=== PATIENT | female | born 1965 | race Caucasian/White ===

== ENCOUNTER 2018-09-25 09:36 | Outpatient (CLI) | payer OTHER ==
--- NOTE | 2018-09-25 13:38 | NM ---
FNM Bone Scan STANDARD History: [Malignant neoplasm of unspecified ovary] Comparison: None. Findings: Whole body static imaging was obtained after the intravenous demonstration of 30.6 C and te chnetium 99 M MDP. There is adequate uptake of radiotracer in the skeletal system. The kidneys and urinary bladder are v isualized. No evidence of metastatic disease. Impression: No evidence of metastatic disease.
== END 2018-09-25 09:37 | disposition home or self-care (01) ==
LOC: NM 09:36
PROVIDERS: ATTEND Internal Medicine Hematology & Oncology
DX: C56.9 Malignant neoplasm of unspecified ovary (principal); I08.1 Rheumatic disorders of both mitral and tricuspid valves; I31.3 Pericardial effusion (noninflammatory); Z79.899 Other long term (current) drug therapy
CPT/HCPCS: 78306; 93306; A9503

== ENCOUNTER 2018-09-26 07:33 | Day surgery (SDC) | payer OTHER ==
[2018-09-25 13:58] VITALS: BMI 24.9
[2018-09-26] MEDS ORDERED: Bupivacaine/Epinephrine 0.25% 30 ML VIAL ONE (08:07)
[2018-09-26] MEDS ORDERED: Lidocaine 2% PF 5 ML VIAL ONE (08:07)
[2018-09-26] MEDS ORDERED: Midazolam HCl 2 mg/2 ml Vial ONE (08:41)
[2018-09-26] MEDS ORDERED: Fentanyl 100 MCG/2 ML VIAL ONE (08:41)
--- NOTE | 2018-09-26 10:52 | RAD ---
FChest AP view INDICATION: Mediport placement COMPARISON: None FINDINGS: The lungs are clear. There is a small left apical pneumothorax. The right lung is clear. No acute osseous abnormality is evident. There is a left subclavian chest wall port in place. The tip of the catheter seen within the region of the SVC. IMPRESSION: Small left apical pneumothorax. Findings called to Dr. Stanley at 10:52 AM on September 26, 2018. New left subclavian chest wall port placement. Transcribed Date/Time: 09/26/2018 10:57 AM
--- NOTE | 2018-09-26 11:37 | RAD ---
FEXAM:Inspiratory expiratory chest 2 views HISTORY: Left-sided pneumothorax. COMPARISON: Exam done earlier today. FINDINGS:A tiny left apical pneumothorax is again noted it does not change substantially between insp iratory and expiratory chest films. It is not increased in size as compared to the earlier study. IMPRESSION:Stable tiny left apical pneumothorax
[2018-09-26] MEDS ORDERED: Ondansetron PF 4 MG/2 ML Vial ONE (12:04)
[2018-09-26] MEDS ORDERED: Lidocaine 1% PF 5 ML VIAL ONE (12:04)
[2018-09-26] MEDS ORDERED: PROPOFOL 200 MG/20 ML VIAL ONE (12:04)
[2018-09-26] MEDS ORDERED: HYDROcodone/Acetaminophen 5/325 mg Tablet ONE (12:24)
--- NOTE | 2018-09-26 15:31 | PDOC.OP ---
Operative Note - Operative Note Operative Note: PROCEDURE: Left subclavian MediPort placement DATE OF PROCEDURE: 09/26/2018 SURGEON: Fred Stanley M.D. PREOPERATIVE DIAGNOSIS: Ovarian cancer POSTOPERATIVE DIAGNOSIS: Ovarian cancer HISTORY: Patient has been diagnosed with ovarian cancer with ascites and omental involvement. Chemotherapy has been recommended and a Mediport has been requested for this. OPERATIVE PROCEDURE IN DETAIL: After informed consent was obtained and appropriate preoperative antibiotics administered, the patient was taken to the operating room and placed in supine position and monitored anesthesia care was administered. The patient was then placed in Trendelenburg position and the subclavian vein attempted to be accessed using a standard approach without success. A second attempt was made slightly more medially, again without success. A third attempt slightly more laterally obtained excellent dark venous nonpulsatile flow. A wire threaded easily and was confirmed to be in the superior vena cava by fluoroscopy. Additional local anesthesia was infused to the skin and subcutaneous tissues lateral and inferior to the access site. The skin incision was extended from the wire laterally and a subcutaneous pocket developed inferiorly. A Mediport was obtained and confirmed to fit in the subcutaneous pocket. This was secured inferiorly to the pectoralis fascia with a Prolene suture, which was clamped, but not tied. The dilator and sheath were then placed over the wire and the dilator and wire removed leaving the sheath in place. The clamped MediPort tubing was tunneled through the sheath, which was then split and removed leaving the MediPort tubing in place. The tubing was adjusted until the tip was confirmed by fluoroscopy to be in the superior vena cava just above the atrium. The tubing was clamped at the skin level and cut and the tubing secured to the port, which was then placed in the subcutaneous pocket. The previously placed suture was secured and two additional sutures were placed to fix the port in place within the pocket. The port was aspirated with the Alexander needle and had excellent flow of dark venous non-pulsatile blood and easily flushed without resistance. The subcutaneous tissues were closed with a running Monocryl suture, following which the skin was closed with a running subcuticular Monocryl suture. Dermabond dressings were placed and the hub was again accessed through the skin and confirmed to easily aspirate and easily flush. The access tubing was left in place for immediate postoperative chemotherapy, and dressed with gauze and Tegaderm. The course of the catheter was confirmed by fluoroscopy to be smooth with the tip appropriately located in the superior vena cava. The patient was taken back to the day stay unit in good condition. Estimated blood loss was minimal. There were no specimens. Postoperative chest x-ray showed a small left apical pneumothorax which did not expand on repeat chest x-ray. The patient was informed of this complication and instructed to return immediately if she developed chest pain or shortness of breath. A 6 hour follow-up chest x-ray was ordered to confirm stability.
--- NOTE | 2018-09-26 17:08 | RAD ---
FInspiratory and expiratory frontal radiograph chest: 09/26/2018 at 4:54 PM COMPARISON: 09/26/2018 at 11:25 AM HISTORY: Reevaluate pneumothorax FINDINGS: Stable tiny apical pneumothorax is noted on the left. New subtle subcutaneous gas noted in the supraclavicular region on the left and in the left axillary region. Mild increased linear interst itial density is noted with pulmonary hyperinflation. Small bilateral pleural effusions are noted as well. Left-sided Port-A-Cath present with distal tip overlying the expected location of the proximal superior vena cava, stable. IMPRESSION: Stable tiny apical pneumothorax on the left. Results called to Dr. Stanley at 5:05 PM 09/26/2018
== END 2018-09-26 13:30 | disposition home or self-care (01) ==
LOC: SDC 07:33
PROVIDERS: ATTEND Surgery
PROC: B518ZZA Fluoroscopy of Superior Vena Cava, Guidance (ICD-10-PCS; principal; 2018-09-26)
PROC: 02HV33Z Insertion of Infusion Device into Superior Vena Cava, Percutaneous Approach (ICD-10-PCS; principal; 2018-09-26)
DX: C56.9 Malignant neoplasm of unspecified ovary (principal); Z88.5 Allergy status to narcotic agent; Z88.2 Allergy status to sulfonamides; Z79.899 Other long term (current) drug therapy; Z98.890 Other specified postprocedural states
CPT/HCPCS: 71045; C1788; J1642; J2001; J2250; J2405; J2704; J3010

== ENCOUNTER 2018-11-26 08:35 | Outpatient (CLI) | payer OTHER ==
--- NOTE | 2018-11-26 13:13 | CT ---
CHEST, ABDOMEN AND PELVIC CT SCAN WITH IV CONTRAST: 11/26/18 HISTORY: Malignant neoplasm of unspecified ovary. Comparison is made to a prior report from an outside examination dated 09/09/18. FINDINGS: Left sided central line and injection port. Small to moderate right pleural effusion. No evidence for left pleural effusion. No mediastinal mass or adenopathy. Small pericardial effusion. Several small pericardial fat lymph nodes measuring up to 0.7 cm in size. Several small low attenuation foci within the liver, statistically small cysts. Gallbladder, pancreas, spleen, adrenal glands are unremarkable . No renal calculus or acute obstruction. Small retroperitoneal lymph nodes but no evidence for re troperitoneal adenopathy. Trace ascites in the pelvis. 1.7 cm right ovarian follicle cyst. Normal ap pearing appendix. IMPRESSION: Small to moderate right pleural effusion with minimal pleural based atelectasis. No left pleural effu bhumika. Trace pericardial effusion. Several small pericardial lymph nodes up to 0.7 cm in size. Small c ircumscribed low attenuation foci within the liver, statistically cysts. Small retroperitoneal lymph nodes without evidence for significant adenopathy. Trace ascetic fluid within the pelvis. 1.7 cm righ t ovarian follicle cyst. POS: OFF
== END 2018-11-26 08:36 | disposition home or self-care (01) ==
LOC: SCSCT 08:35
PROVIDERS: ATTEND Internal Medicine Hematology & Oncology
DX: C56.9 Malignant neoplasm of unspecified ovary (principal); J90 Pleural effusion, not elsewhere classified; J98.11 Atelectasis; N83.01 Follicular cyst of right ovary
CPT/HCPCS: 71260; 74177; 80053; 82248; 83615; 84100; 84550; 86304

== ENCOUNTER 2019-02-21 08:14 | Outpatient (CLI) | payer OTHER ==
[2019-02-21] MEDS ORDERED: Iopamidol 370 76% 100 ML VIAL ONE (09:00)
--- NOTE | 2019-02-21 12:48 | CT ---
Chest abdomen and pelvic CT scan with IV contrast: HISTORY: C 56.9 COMPARISON: 11/26/2018 FINDINGS: Resolution of the previously noted small right pleural effusion and pleural-based parenchymal changes in the right lower lung base. The previously noted small right pericardial lymph nodes are smaller and less well-defined on today's study. Trace pericardial fluid or thickening, stable. No evidence fo r pulmonary metastasis. Small circumscribed low-attenuation foci within the liver dome stable. No CT evidence for acute appendicitis. Mild stable fat stranding in the pelvis. No pelvic adenopathy. No abscess or abnormal fluid collection. IMPRESSION: Resolution of the previously noted small right pleural effusion and pleural-based parenchymal changes . Previously noted small right pericardial lymph nodes are much more poorly defined and probably smalle r. Stable circumscribed low-attenuation foci in the liver. Stable fat stranding in the pelvis. No evidence for new metastasis.
== END 2019-02-21 08:15 | disposition home or self-care (01) ==
LOC: SCSCT 08:14
PROVIDERS: ATTEND Internal Medicine Hematology & Oncology
DX: C56.9 Malignant neoplasm of unspecified ovary (principal); J90 Pleural effusion, not elsewhere classified
CPT/HCPCS: 71260; 74177; Q9967

== ENCOUNTER 2020-05-27 15:30 | Outpatient (CLI) | payer BC ==
--- NOTE | 2020-05-28 11:03 | MRI ---
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 Ovarian cancer. COMPARISON: Mammogram 11/20/2019. CT chest/abdomen/pelvis 02/21/2019 and 11/26/2018. TECHNIQUE: Multiplanar, multisequence MR images were obtained of the breasts without and with IV contrast. FINDINGS: There is predominantly fatty replaced breast parenchyma. Minimal background parenchymal enhancement i s seen. No suspicious masses or suspicious area of enhancement are seen within either breast. Normal appearin g lymph nodes are seen in the axillary regions. No enlarged axillary lymph nodes are seen. No interna l mammary lymph nodes are identified. The visualized anterior liver and osseous structures are unremarkable. IMPRESSION: BI-RADS Category 1 - Negative. POS: EAA
== END 2020-05-27 15:31 | disposition home or self-care (01) ==
LOC: BICMRI 15:30
PROVIDERS: ATTEND Internal Medicine Hematology & Oncology
DX: C56.9 Malignant neoplasm of unspecified ovary (principal)
CPT/HCPCS: A9577; C8908

== ENCOUNTER 2020-11-06 10:42 | Day surgery (SDC) | payer BC ==
[2020-11-06] MEDS ORDERED: Acetaminophen 500 MG TAB PO PRN (11:05)
[2020-11-06] MEDS ORDERED: diphenhydrAMINE 25 MG CAP PO PRN (11:05)
[2020-11-06 14:41] VITALS: BP 117/58; TEMP 97.7
[2020-11-06] MEDS ORDERED: Insulin Regular 300 UNITS/3 ML VIAL ONE (15:05)
[2020-11-06 16:01] LABS: #Lymphocytes 1.7 thou/uL (1.20-3.40); #Monocytes 0.4 thou/uL (0.11-0.59); #Neutrophils 3.6 thou/uL (1.40-6.50); %Basophils 0.4 % (0.0-1.0); %Eosinophils 0.1 % (0.0-10.0); %Lymphocytes 30.4 % (21.0-51.0); %Monocytes 6.5 % (0.0-10.0); %Neutrophils 62.6 % (42.0-75.0); Mean Corpuscular HGB CONC 33.9 g/dL (32.0-36.0); Mean Corpuscular Hemoglobin 35.3 pg (27.0-31.0); Mean Platelet Volume 9.4 fL (7.4-10.4); Platelet Count 97 thou/uL (130-400); RBC Distribution Width 17.8 % (11.5-14.5); Red Blood Cell (RBC) Count 2.55 mill/uL (4.20-5.40); White Blood Cell (WBC) Count 5.7 thou/uL (4.8-10.8)
== END 2020-11-06 15:50 | disposition home or self-care (01) ==
LOC: ONC/OP 10:42 → ONC 10:52 → ONC/OP 15:50
PROVIDERS: ATTEND Internal Medicine Hematology & Oncology
PROC: 30233N1 Transfusion of Nonautologous Red Blood Cells into Peripheral Vein, Percutaneous Approach (ICD-10-PCS; principal; 2020-11-06)
DX: D64.9 Anemia, unspecified (principal); D69.6 Thrombocytopenia, unspecified; Z88.2 Allergy status to sulfonamides; Z88.5 Allergy status to narcotic agent
CPT/HCPCS: 36430; 85025; 86850; 86900; 86901; J1642; J1815; P9016; Q0163

== ENCOUNTER 2020-11-25 08:17 | Day surgery (SDC) | payer BC ==
[2020-11-25] MEDS ORDERED: Acetaminophen 500 MG TAB PO PRN (08:27)
[2020-11-25] MEDS ORDERED: diphenhydrAMINE 25 MG CAP PO PRN (08:29)
[2020-11-25] MEDS ORDERED: Sodium Chloride 0.9% 20 ML ONE (09:26)
[2020-11-25 16:06] VITALS: BP 127/65; TEMP 98.3
== END 2020-11-25 16:10 | disposition home or self-care (01) ==
LOC: ONC/OP 08:17
PROVIDERS: ATTEND Internal Medicine Hematology & Oncology
PROC: 30233N1 Transfusion of Nonautologous Red Blood Cells into Peripheral Vein, Percutaneous Approach (ICD-10-PCS; principal; 2020-11-25)
PROC: 30233R1 Transfusion of Nonautologous Platelets into Peripheral Vein, Percutaneous Approach (ICD-10-PCS; principal; 2020-11-25)
DX: D64.9 Anemia, unspecified (principal); D69.6 Thrombocytopenia, unspecified; Z88.2 Allergy status to sulfonamides; Z88.5 Allergy status to narcotic agent
CPT/HCPCS: 36430; 86850; 86900; 86901; J1642; P9016; P9035; Q0163

== ENCOUNTER 2020-12-24 10:53 | Day surgery (SDC) | payer BC ==
[2020-12-24] MEDS ORDERED: diphenhydrAMINE 25 MG CAP PO SCH (11:15)
[2020-12-24] MEDS ORDERED: Acetaminophen 500 MG TAB PO SCH (11:15)
[2020-12-24] MEDS ORDERED: Sodium Chloride 0.9% 20 ML ONE (12:32)
[2020-12-24 14:39] VITALS: TEMP 97.9
[2020-12-24 16:12] VITALS: BP 126/58
== END 2020-12-24 16:12 | disposition home or self-care (01) ==
LOC: ONC/OP 10:53
PROVIDERS: ATTEND Internal Medicine Hematology & Oncology
PROC: 30233N1 Transfusion of Nonautologous Red Blood Cells into Peripheral Vein, Percutaneous Approach (ICD-10-PCS; principal; 2020-12-24)
DX: D64.9 Anemia, unspecified (principal); D69.6 Thrombocytopenia, unspecified; Z88.2 Allergy status to sulfonamides; Z88.5 Allergy status to narcotic agent
CPT/HCPCS: 36430; 80053; 82248; 83615; 84100; 84550; 86304; 86850; 86900; 86901; J1642; P9016; Q0163

== ENCOUNTER 2021-07-07 11:44 | Day surgery (SDC) | payer BC ==
[2021-07-07] MEDS ORDERED: diphenhydrAMINE 25 MG CAP ONE ×2 (12:09→12:11)
[2021-07-07] MEDS ORDERED: Acetaminophen 500 MG TAB ONE ×2 (12:09→12:11)
[2021-07-07] MEDS ORDERED: Acetaminophen 500 MG TAB PO SCH (12:30)
[2021-07-07] MEDS ORDERED: diphenhydrAMINE 25 MG CAP PO SCH (12:30)
[2021-07-07 15:46] VITALS: TEMP 98.1
[2021-07-07 15:50] VITALS: BP 123/58
== END 2021-07-07 15:51 | disposition home or self-care (01) ==
LOC: ONC/OP 11:44
PROVIDERS: ATTEND Internal Medicine Hematology & Oncology
PROC: 30233N1 Transfusion of Nonautologous Red Blood Cells into Peripheral Vein, Percutaneous Approach (ICD-10-PCS; principal; 2021-07-07)
PROC: 30233R1 Transfusion of Nonautologous Platelets into Peripheral Vein, Percutaneous Approach (ICD-10-PCS; principal; 2021-07-07)
DX: D64.9 Anemia, unspecified (principal); D69.6 Thrombocytopenia, unspecified; Z88.2 Allergy status to sulfonamides; Z88.5 Allergy status to narcotic agent
CPT/HCPCS: 36430; 86850; 86900; 86901; P9016; P9035

== ENCOUNTER 2021-07-22 12:35 | Day surgery (SDC) | payer BC ==
[2021-07-22] MEDS ORDERED: diphenhydrAMINE 25 MG CAP ONE (13:03)
[2021-07-22] MEDS ORDERED: Acetaminophen 500 MG TAB ONE (13:03)
[2021-07-22 14:22] VITALS: TEMP 98.4
[2021-07-22 16:21] VITALS: BP 122/65
== END 2021-07-22 16:21 | disposition home or self-care (01) ==
LOC: ONC/OP 12:35
PROVIDERS: ATTEND Internal Medicine Hematology & Oncology
PROC: 30233N1 Transfusion of Nonautologous Red Blood Cells into Peripheral Vein, Percutaneous Approach (ICD-10-PCS; principal; 2021-07-22)
PROC: 30233R1 Transfusion of Nonautologous Platelets into Peripheral Vein, Percutaneous Approach (ICD-10-PCS; principal; 2021-07-22)
DX: D64.9 Anemia, unspecified (principal); D69.6 Thrombocytopenia, unspecified; Z88.2 Allergy status to sulfonamides; Z88.5 Allergy status to narcotic agent
CPT/HCPCS: 36430; 86850; 86900; 86901; J1642; P9016; P9035

== ENCOUNTER 2021-09-15 08:01 | Day surgery (SDC) | payer BC ==
[2021-09-15] MEDS ORDERED: Acetaminophen 500 MG TAB ONE (09:07)
[2021-09-15] MEDS ORDERED: diphenhydrAMINE 25 MG CAP ONE (09:07)
[2021-09-15 14:25] VITALS: BP 127/75; TEMP 98.2
== END 2021-09-15 14:25 | disposition home or self-care (01) ==
LOC: ONC/OP 08:01
PROVIDERS: ATTEND Internal Medicine Hematology & Oncology
PROC: 3E0T3BZ Introduction of Anesthetic Agent into Peripheral Nerves and Plexi, Percutaneous Approach (ICD-10-PCS; principal; 2021-09-15)
PROC: 30233R1 Transfusion of Nonautologous Platelets into Peripheral Vein, Percutaneous Approach (ICD-10-PCS; principal; 2021-09-15)
DX: D64.9 Anemia, unspecified (principal); D69.6 Thrombocytopenia, unspecified; Z88.2 Allergy status to sulfonamides; Z88.5 Allergy status to narcotic agent
CPT/HCPCS: 36430; 86850; 86900; 86901; P9016; P9035

== ENCOUNTER 2021-09-23 15:34 | Day surgery (SDC) | payer BC ==
[2021-09-23 16:37] VITALS: BP 126/80; TEMP 98.2
== END 2021-09-23 16:37 | disposition home or self-care (01) ==
LOC: ONC/OP 15:34
PROVIDERS: ATTEND Internal Medicine Hematology & Oncology
PROC: 30233R1 Transfusion of Nonautologous Platelets into Peripheral Vein, Percutaneous Approach (ICD-10-PCS; principal; 2021-09-23)
DX: D69.6 Thrombocytopenia, unspecified (principal); D64.9 Anemia, unspecified; Z88.2 Allergy status to sulfonamides; Z88.5 Allergy status to narcotic agent
CPT/HCPCS: 36430; 86304; 86850; 86900; 86901; J1642; P9035

== ENCOUNTER 2021-10-06 15:31 | Day surgery (SDC) | payer BC ==
[2021-10-06] MEDS ORDERED: diphenhydrAMINE 25 MG CAP PO SCH (16:45)
[2021-10-06] MEDS ORDERED: Acetaminophen 500 MG TAB PO SCH (16:45)
[2021-10-06 18:16] VITALS: BP 121/58; TEMP 98.2
[2021-10-06 21:11] LABS: #Lymphocytes 0.7 thou/uL (1.20-3.40); #Neutrophils 1.1 thou/uL (1.40-6.50); %Basophils 0.7 % (0.0-1.0); %Eosinophils 0.1 % (0.0-10.0); %Lymphocytes 38.3 % (21.0-51.0); %Monocytes 1.9 % (0.0-10.0); Hemoglobin 8.3 g/dL (12.0-16.0); Mean Corpuscular Hemoglobin 35.4 pg (27.0-31.0); Mean Platelet Volume 7.3 fL (7.4-10.4); Platelet Count 48 thou/uL (130-400); RBC Distribution Width 17.3 % (11.5-14.5); Red Blood Cell (RBC) Count 2.34 mill/uL (4.20-5.40); White Blood Cell (WBC) Count 1.8 thou/uL (4.8-10.8)
== END 2021-10-06 21:45 | disposition home or self-care (01) ==
LOC: ONC/OP 15:31 → 2NO 15:46 → UNDOADMIN 15:46 → MSONC 15:46 → UNDODISIN 21:15 → ONC/OP 21:45
PROVIDERS: ATTEND Internal Medicine Hematology & Oncology
PROC: 30233N1 Transfusion of Nonautologous Red Blood Cells into Peripheral Vein, Percutaneous Approach (ICD-10-PCS; principal; 2021-10-06)
PROC: 30233R1 Transfusion of Nonautologous Platelets into Peripheral Vein, Percutaneous Approach (ICD-10-PCS; principal; 2021-10-06)
DX: D64.9 Anemia, unspecified (principal); D69.6 Thrombocytopenia, unspecified; Z88.2 Allergy status to sulfonamides; Z88.5 Allergy status to narcotic agent
CPT/HCPCS: 36415; 36430; 85025; 86304; 86850; 86900; 86901; P9016; P9035

== ENCOUNTER → 2021-10-14 | Day surgery (SDC) | payer BC ==
[~2021-10-14] MED LIST: Acetaminophen 500 MG TAB ONE; diphenhydrAMINE 25 MG CAP ONE
[2021-10-14 15:12] VITALS: TEMP 98.4
[2021-10-14 15:20] VITALS: BP 134/63
== END ==
LOC: ONC/OP 10:47
PROVIDERS: ATTEND Internal Medicine Hematology & Oncology
PROC: 30233N1 Transfusion of Nonautologous Red Blood Cells into Peripheral Vein, Percutaneous Approach (ICD-10-PCS; principal; 2021-10-14)
PROC: 30233R1 Transfusion of Nonautologous Platelets into Peripheral Vein, Percutaneous Approach (ICD-10-PCS; principal; 2021-10-14)
DX: D69.6 Thrombocytopenia, unspecified (principal); D64.9 Anemia, unspecified; Z88.2 Allergy status to sulfonamides; Z88.5 Allergy status to narcotic agent
CPT/HCPCS: 36430; 86850; 86900; 86901; J1642; P9016; P9035

== ENCOUNTER 2021-10-18 17:33 | Day surgery (SDC) | payer BC ==
[2021-10-18] MEDS ORDERED: Acetaminophen 500 MG TAB PO PRN (19:18)
[2021-10-18] MEDS ORDERED: diphenhydrAMINE 25 MG CAP PO PRN (19:18)
[2021-10-18 22:34] VITALS: BP 112/74; TEMP 98.7
== END 2021-10-18 22:39 | disposition home or self-care (01) ==
LOC: ONC/OP 17:33 → MSONC 18:21 → ONC/OP 22:39
PROVIDERS: ATTEND Internal Medicine Hematology & Oncology
PROC: 30233R1 Transfusion of Nonautologous Platelets into Peripheral Vein, Percutaneous Approach (ICD-10-PCS; principal; 2021-10-18)
DX: D69.6 Thrombocytopenia, unspecified (principal); Z88.2 Allergy status to sulfonamides; Z88.5 Allergy status to narcotic agent
CPT/HCPCS: 36430; 86850; 86900; 86901; J1642; P9035

== ENCOUNTER 2021-10-21 12:06 | Day surgery (SDC) | payer BC ==
[2021-10-21] MEDS ORDERED: diphenhydrAMINE 25 MG CAP ONE (13:14)
[2021-10-21] MEDS ORDERED: Acetaminophen 500 MG TAB ONE (13:14)
[2021-10-21 15:46] VITALS: BP 130/65; TEMP 98.5
== END 2021-10-21 15:47 | disposition home or self-care (01) ==
LOC: ONC/OP 12:06
PROVIDERS: ATTEND Internal Medicine Hematology & Oncology
PROC: 30233N1 Transfusion of Nonautologous Red Blood Cells into Peripheral Vein, Percutaneous Approach (ICD-10-PCS; principal; 2021-10-21)
DX: D64.9 Anemia, unspecified (principal); D69.6 Thrombocytopenia, unspecified; Z88.2 Allergy status to sulfonamides; Z88.5 Allergy status to narcotic agent
CPT/HCPCS: 36430; 86850; 86900; 86901; J1642; P9016

== ENCOUNTER 2021-11-04 10:59 | Day surgery (SDC) | payer BC ==
[2021-11-04] MEDS ORDERED: Acetaminophen 500 MG TAB ONE (11:37)
[2021-11-04] MEDS ORDERED: diphenhydrAMINE 25 MG CAP ONE (11:37)
[2021-11-04 14:30] VITALS: BP 125/63; TEMP 98.5
== END 2021-11-04 14:29 | disposition home or self-care (01) ==
LOC: ONC/OP 10:59
PROVIDERS: ATTEND Internal Medicine Hematology & Oncology
PROC: 30233R1 Transfusion of Nonautologous Platelets into Peripheral Vein, Percutaneous Approach (ICD-10-PCS; principal; 2021-11-04)
PROC: 30233N1 Transfusion of Nonautologous Red Blood Cells into Peripheral Vein, Percutaneous Approach (ICD-10-PCS; principal; 2021-11-04)
DX: D69.6 Thrombocytopenia, unspecified (principal); D64.9 Anemia, unspecified; Z88.2 Allergy status to sulfonamides; Z88.5 Allergy status to narcotic agent
CPT/HCPCS: 36430; 86850; 86900; 86901; J1642; P9016; P9035

== ENCOUNTER 2021-11-11 11:18 | Day surgery (SDC) | payer BC ==
[2021-11-11] MEDS ORDERED: diphenhydrAMINE 25 MG CAP ONE (11:39)
[2021-11-11] MEDS ORDERED: Acetaminophen 500 MG TAB ONE (11:39)
[2021-11-11 12:52] VITALS: TEMP 98.5
[2021-11-11 12:54] VITALS: BP 142/62
== END 2021-11-11 12:55 | disposition home or self-care (01) ==
LOC: ONC/OP 11:18
PROVIDERS: ATTEND Internal Medicine Hematology & Oncology
PROC: 30233R1 Transfusion of Nonautologous Platelets into Peripheral Vein, Percutaneous Approach (ICD-10-PCS; principal; 2021-11-11)
DX: D69.6 Thrombocytopenia, unspecified (principal); Z88.2 Allergy status to sulfonamides; Z88.5 Allergy status to narcotic agent
CPT/HCPCS: 36430; 86850; 86900; 86901; J1642; P9035

== ENCOUNTER 2021-11-17 11:14 | Outpatient (CLI) | payer BC ==
[2021-11-17 21:33] LABS: SARS-CoV-2 PCR by NAA Not Detected (NotDetected)
== END 2021-11-17 11:15 | disposition home or self-care (01) ==
LOC: LABBT 11:14
DX: D69.59 Other secondary thrombocytopenia (principal); C56.9 Malignant neoplasm of unspecified ovary; Z20.822 Contact with and (suspected) exposure to COVID-19
CPT/HCPCS: U0003; U0005

== ENCOUNTER 2021-11-18 12:46 | Day surgery (SDC) | payer BC ==
[2021-11-18] MEDS ORDERED: Acetaminophen 500 MG TAB ONE (13:28)
[2021-11-18] MEDS ORDERED: diphenhydrAMINE 25 MG CAP ONE (13:29)
[2021-11-18 14:50] VITALS: TEMP 98.4
[2021-11-18 16:32] VITALS: BP 157/65
== END 2021-11-18 16:34 | disposition home or self-care (01) ==
LOC: ONC/OP 12:46
PROVIDERS: ATTEND Internal Medicine Hematology & Oncology
PROC: 30233N1 Transfusion of Nonautologous Red Blood Cells into Peripheral Vein, Percutaneous Approach (ICD-10-PCS; principal; 2021-11-18)
PROC: 30233R1 Transfusion of Nonautologous Platelets into Peripheral Vein, Percutaneous Approach (ICD-10-PCS; principal; 2021-11-18)
DX: D69.6 Thrombocytopenia, unspecified (principal); D64.9 Anemia, unspecified; Z88.2 Allergy status to sulfonamides; Z88.5 Allergy status to narcotic agent
CPT/HCPCS: 36430; 86850; 86900; 86901; J1642; P9016; P9035

== ENCOUNTER 2021-11-22 08:15 | Day surgery (SDC) | payer BC ==
[2021-11-18 10:55] VITALS: BMI 29.8
[2021-11-22 08:42] LABS: Hemoglobin 10.4 g/dL (12.0-16.0); Mean Corpuscular HGB CONC 33.5 g/dL (32.0-36.0); Mean Corpuscular Hemoglobin 32.8 pg (27.0-31.0); Mean Corpuscular Volume 97.9 fL (78.0-98.0); Mean Platelet Volume 9.1 fL (7.4-10.4); Platelet Count 24 thou/uL (130-400); Red Blood Cell (RBC) Count 3.16 mill/uL (4.20-5.40); White Blood Cell (WBC) Count 4.1 thou/uL (4.8-10.8)
[2021-11-22 08:51] LABS: PTT 30.2 sec (22.9-36.1); Prothrombin Time 13.5 sec (12.0-14.7)
[2021-11-22 09:37] LABS: MDiff Complete? YES; Platelet Morphology Comment Appears Decreased; Polychromasia SLIGHT = 2-3 cells (100X) (0-2/hpf)
[2021-11-22 12:06] VITALS: BP 119/74; TEMP 98.7
== END 2021-11-22 11:35 | disposition home or self-care (01) ==
LOC: CT 08:15
PROVIDERS: ATTEND Internal Medicine Hematology & Oncology
PROC: 079T3ZX Drainage of Bone Marrow, Percutaneous Approach, Diagnostic (ICD-10-PCS; principal; 2021-11-22)
PROC: 07DR3ZX Extraction of Iliac Bone Marrow, Percutaneous Approach, Diagnostic (ICD-10-PCS; principal; 2021-11-22)
DX: D69.59 Other secondary thrombocytopenia (principal); C56.1 Malignant neoplasm of right ovary; Z79.899 Other long term (current) drug therapy; Z88.2 Allergy status to sulfonamides; Z88.5 Allergy status to narcotic agent
CPT/HCPCS: 20225; 36415; 77002; 85025; 85610; 85730; 88184; 88237

== ENCOUNTER 2021-11-24 10:21 | Day surgery (SDC) | payer BC ==
[~2021-11-24 10:21] MED LIST changes: -Acetaminophen 500 MG TAB ONE; +Fentanyl 100 MCG/2 ML VIAL ONE; +Midazolam HCl 2 mg/2 ml Vial ONE; +Sodium Bicarbonate 2.5 MEQ/5 ML VIAL ONE; -diphenhydrAMINE 25 MG CAP ONE
[2021-11-24] MEDS ORDERED: diphenhydrAMINE 25 MG CAP ONE (10:48)
[2021-11-24] MEDS ORDERED: Acetaminophen 500 MG TAB ONE (10:48)
[2021-11-24 12:16] VITALS: BP 125/56; TEMP 98.6
== END 2021-11-24 12:17 | disposition home or self-care (01) ==
LOC: ONC/OP 10:21
PROVIDERS: ATTEND Internal Medicine Hematology & Oncology
PROC: 30233R1 Transfusion of Nonautologous Platelets into Peripheral Vein, Percutaneous Approach (ICD-10-PCS; principal; 2021-11-24)
DX: D69.6 Thrombocytopenia, unspecified (principal); D64.9 Anemia, unspecified; Z88.2 Allergy status to sulfonamides; Z88.5 Allergy status to narcotic agent
CPT/HCPCS: 36430; 86850; 86900; 86901; J1642; P9035

== ENCOUNTER 2021-11-30 09:37 | Day surgery (SDC) | payer BC ==
[2021-11-30] MEDS ORDERED: diphenhydrAMINE 25 MG CAP ONE (09:49)
[2021-11-30] MEDS ORDERED: Acetaminophen 500 MG TAB ONE (09:50)
[2021-11-30 10:24] VITALS: TEMP 98.5
[2021-11-30 10:55] VITALS: BP 115/69
== END 2021-11-30 10:55 | disposition home or self-care (01) ==
LOC: ONC/OP 09:37
PROVIDERS: ATTEND Internal Medicine Hematology & Oncology
PROC: 30233R1 Transfusion of Nonautologous Platelets into Peripheral Vein, Percutaneous Approach (ICD-10-PCS; principal; 2021-11-30)
DX: D69.6 Thrombocytopenia, unspecified (principal); D64.9 Anemia, unspecified; Z88.2 Allergy status to sulfonamides; Z88.5 Allergy status to narcotic agent
CPT/HCPCS: 36430; 86850; 86900; 86901; J1642; P9035

== ENCOUNTER 2021-12-02 10:02 | Day surgery (SDC) | payer BC ==
[2021-12-02] MEDS ORDERED: Acetaminophen 500 MG TAB ONE (10:55)
[2021-12-02] MEDS ORDERED: diphenhydrAMINE 25 MG CAP ONE (10:55)
[2021-12-02 11:24] VITALS: TEMP 98.5
[2021-12-02 14:17] VITALS: BP 120/58
== END 2021-12-02 14:17 | disposition home or self-care (01) ==
LOC: ONC/OP 10:02
PROVIDERS: ATTEND Internal Medicine Hematology & Oncology
PROC: 30233N1 Transfusion of Nonautologous Red Blood Cells into Peripheral Vein, Percutaneous Approach (ICD-10-PCS; principal; 2021-12-02)
DX: D64.9 Anemia, unspecified (principal); D69.6 Thrombocytopenia, unspecified; Z88.2 Allergy status to sulfonamides; Z88.5 Allergy status to narcotic agent
CPT/HCPCS: 36430; 86850; 86900; 86901; J1642; P9016

== ENCOUNTER 2021-12-07 12:31 | Day surgery (SDC) | payer BC ==
[2021-12-07] MEDS ORDERED: diphenhydrAMINE 25 MG CAP ONE (12:48)
[2021-12-07] MEDS ORDERED: Acetaminophen 500 MG TAB ONE (12:48)
[2021-12-07 16:02] VITALS: BP 124/82; TEMP 98.1
== END 2021-12-07 16:12 | disposition home or self-care (01) ==
LOC: ONC/OP 12:31
PROVIDERS: ATTEND Internal Medicine Hematology & Oncology
PROC: 30233R1 Transfusion of Nonautologous Platelets into Peripheral Vein, Percutaneous Approach (ICD-10-PCS; principal; 2021-12-07)
PROC: 30233N1 Transfusion of Nonautologous Red Blood Cells into Peripheral Vein, Percutaneous Approach (ICD-10-PCS; principal; 2021-12-07)
DX: D64.9 Anemia, unspecified (principal); D69.6 Thrombocytopenia, unspecified; Z88.2 Allergy status to sulfonamides; Z88.5 Allergy status to narcotic agent
CPT/HCPCS: 36430; 86850; 86900; 86901; J1642; P9016; P9035

== ENCOUNTER 2021-12-08 11:57 | Outpatient (CLI) | payer BC | END 2021-12-08 11:58 | disposition home or self-care (01) | LOC: RAD 11:57 | PROVIDERS: ATTEND Internal Medicine Hematology & Oncology | DX: R06.02 Shortness of breath (principal); J90 Pleural effusion, not elsewhere classified | CPT/HCPCS: 71046 ==

== ENCOUNTER 2021-12-16 09:12 | Day surgery (SDC) | payer BC ==
[2021-12-16] MEDS ORDERED: Acetaminophen 500 MG TAB ONE (10:10)
[2021-12-16] MEDS ORDERED: diphenhydrAMINE 25 MG CAP ONE (10:10)
[2021-12-16 11:51] VITALS: BP 135/63; TEMP 98.1
== END 2021-12-16 11:51 | disposition home or self-care (01) ==
LOC: ONC/OP 09:12
PROVIDERS: ATTEND Internal Medicine Hematology & Oncology
PROC: 30233R1 Transfusion of Nonautologous Platelets into Peripheral Vein, Percutaneous Approach (ICD-10-PCS; principal; 2021-12-16)
DX: D69.6 Thrombocytopenia, unspecified (principal); D64.9 Anemia, unspecified; Z88.2 Allergy status to sulfonamides; Z88.5 Allergy status to narcotic agent
CPT/HCPCS: 36430; 86850; 86900; 86901; J1642; P9035

== ENCOUNTER 2021-12-22 10:42 | Outpatient (CLI) | payer BC | END 2021-12-22 10:43 | disposition home or self-care (01) | LOC: BICRAD 10:42 | PROVIDERS: ATTEND Internal Medicine Hematology & Oncology | DX: J90 Pleural effusion, not elsewhere classified (principal); C56.9 Malignant neoplasm of unspecified ovary; D69.59 Other secondary thrombocytopenia; D46.Z Other myelodysplastic syndromes | CPT/HCPCS: 71046 ==

== ENCOUNTER 2021-12-22 11:20 | Day surgery (SDC) | payer BC ==
[2021-12-22] MEDS ORDERED: diphenhydrAMINE 25 MG CAP ONE (12:28)
[2021-12-22] MEDS ORDERED: Acetaminophen 500 MG TAB ONE (12:28)
[2021-12-22 14:57] VITALS: TEMP 98.5
[2021-12-22 15:00] VITALS: BP 123/56
== END 2021-12-22 15:00 | disposition home or self-care (01) ==
LOC: ONC/OP 11:20
PROVIDERS: ATTEND Internal Medicine Hematology & Oncology
PROC: 30233N1 Transfusion of Nonautologous Red Blood Cells into Peripheral Vein, Percutaneous Approach (ICD-10-PCS; principal; 2021-12-22)
DX: D64.9 Anemia, unspecified (principal); D69.6 Thrombocytopenia, unspecified; Z88.2 Allergy status to sulfonamides; Z88.5 Allergy status to narcotic agent
CPT/HCPCS: 36430; 71046; 86850; 86900; 86901; J1642; P9016

== ENCOUNTER 2021-12-29 17:26 | Inpatient (IN) | payer BC ==
[~2021-12-29 17:26] MED LIST changes: -Fentanyl 100 MCG/2 ML VIAL ONE; +ISOVUE-370 76%-LOCM 1 ML ONE; -Midazolam HCl 2 mg/2 ml Vial ONE; -Sodium Bicarbonate 2.5 MEQ/5 ML VIAL ONE
[2021-12-29 18:33] LABS: #Basophils 0.1 thou/uL (0.0-0.2); #Lymphocytes 1.4 thou/uL (1.20-3.40); #Monocytes 0.3 thou/uL (0.11-0.59); #Neutrophils 2.8 thou/uL (1.40-6.50); %Basophils 2.1 % (0.0-1.0); %Eosinophils 0.1 % (0.0-10.0); %Lymphocytes 30.4 % (21.0-51.0); %Monocytes 6.8 % (0.0-10.0); %Neutrophils 60.6 % (42.0-75.0); Hemoglobin 7.7 g/dL (12.0-16.0); Mean Corpuscular HGB CONC 33.7 g/dL (32.0-36.0); Mean Corpuscular Hemoglobin 34.4 pg (27.0-31.0); Mean Platelet Volume 11.4 fL (7.4-10.4); Platelet Count 19 thou/uL (130-400); RBC Distribution Width 19.8 % (11.5-14.5); Red Blood Cell (RBC) Count 2.24 mill/uL (4.20-5.40); White Blood Cell (WBC) Count 4.6 thou/uL (4.8-10.8)
[2021-12-29 18:43] LABS: INR-International Normal Ratio 1.1; Prothrombin Time 14.4 sec (12.0-14.7)
[2021-12-29 18:44] LABS: PTT 40.3 sec (22.9-36.1)
[2021-12-29 18:53] LABS: D-Dimer Test 6.72 *mcg/mL (0.27-0.43)
[2021-12-29 19:25] LABS: ALT (SGPT) 24 U/L (8-55); AST (SGOT) 19 U/L (5-34); Albumin 3.8 g/dL (3.5-5.0); Alkaline Phosphatase 106 U/L (40-110); Anion Gap 17 mmol/L (10-20); BUN (Urea Nitrogen) 11 mg/dL (9.8-20.1); Bilirubin, Total 1.2 mg/dL (0.2-1.2); Calc. Creatinine Clearance 0 mL/min (70-130); Calcium 8.9 mg/dL (7.8-10.44); Carbon Dioxide 28 mmol/L (22-29); Chloride 97 mmol/L (98-107); Estimated GFR 104; Globulin 3.3 g/dL (2.4-3.5); Glucose 113 mg/dL (70-105); Lipase 13 U/L (8-78); Potassium 3.7 mmol/L (3.5-5.1); Protein, Total 7.1 g/dL (6.0-8.3); Sodium 138 mmol/L (136-145)
[2021-12-29] MEDS ORDERED: Acetaminophen 500 MG TAB ONE (22:03)
[2021-12-29 22:20] LABS: SARS-CoV-2 NAA Rapid Test Not Detected (NotDetected)
[2021-12-29 23:40] VITALS: BMI 28.3
[2021-12-30 01:05] LABS: Hemoglobin 8.7 g/dL (12.0-16.0)
[2021-12-30 03:05] LABS: Band 8 % (5-11); Hemoglobin 8.3 g/dL (12.0-16.0); Hypochromia SLIGHT = 6-15 cells (100X) (0-5/hpf); Lymphocytes 37 % (21-51); MDiff Complete? YES; Mean Corpuscular HGB CONC 34.6 g/dL (32.0-36.0); Mean Corpuscular Hemoglobin 34.2 pg (27.0-31.0); Mean Corpuscular Volume 98.9 fL (78.0-98.0); Mean Platelet Volume 7.6 fL (7.4-10.4); Monocytes 4 % (0-10); Neutrophil 46 % (42-75); Platelet Count 66 thou/uL (130-400); Platelet Morphology Comment Appears Decreased; RBC Distribution Width 17.9 % (11.5-14.5); Reactive Lymphocytes 5 % (0-10); Red Blood Cell (RBC) Count 2.41 mill/uL (4.20-5.40); White Blood Cell (WBC) Count 4.2 thou/uL (4.8-10.8)
[2021-12-30 03:19] LABS: ALT (SGPT) 22 U/L (8-55); AST (SGOT) 20 U/L (5-34); Albumin 3.4 g/dL (3.5-5.0); Alkaline Phosphatase 98 U/L (40-110); Anion Gap 14 mmol/L (10-20); BUN (Urea Nitrogen) 11 mg/dL (9.8-20.1); Bilirubin, Total 1.3 mg/dL (0.2-1.2); Calc. Creatinine Clearance 119 mL/min (70-130); Calcium 9.1 mg/dL (7.8-10.44); Carbon Dioxide 28 mmol/L (22-29); Chloride 100 mmol/L (98-107); Estimated GFR 105; Globulin 3.4 g/dL (2.4-3.5); Glucose 114 mg/dL (70-105); Potassium 3.2 mmol/L (3.5-5.1); Protein, Total 6.8 g/dL (6.0-8.3); Sodium 139 mmol/L (136-145)
[2021-12-30] MEDS ORDERED: Electrolyte Replacement Protocol FS PRN (04:15)
[2021-12-30] MEDS ORDERED: Potassium Chloride 20 MEQ TAB PO SCH (05:15)
[2021-12-30] MEDS: Acetaminophen 325 MG TAB PO PRN (09:50)
[2021-12-30] MEDS ORDERED: Lidocaine 2% 20 ml MDV SC SCH (12:30)
[2021-12-30 13:49] LABS: Potassium 3.6 mmol/L (3.5-5.1)
[2021-12-30 15:43] LABS: Pleural Fluid, Protein 5.2 g/dL
[2021-12-30 15:49] LABS: Fluid, pH - Pleural Fld Greater than 7.50 (7.60 - 7.66)
[2021-12-30 15:50] LABS: RBC Count-Automated (BF) 68195 /cu.mm; WBC/Nucleated-Auto (BF) 2502 /cu.mm
[2021-12-30 16:36] LABS: BF Color Red; Body Fluid Source Pleural Fluid; Clarity Cloudy/Turbid (Clear); Tube # EDTA
[2021-12-30 16:39] LABS: BF Segmented Neutrophils 51 %; Cell Count Non Hematic 14 %; Lymphocytes 35 %
[2021-12-30 16:47] LABS: #Monocytes 0.2 thou/uL (0.11-0.59); %Basophils 0.3 % (0.0-1.0); %Eosinophils 0.1 % (0.0-10.0); %Lymphocytes 23.7 % (21.0-51.0); %Monocytes 4.8 % (0.0-10.0); %Neutrophils 71.1 % (42.0-75.0); Hemoglobin 8.6 g/dL (12.0-16.0); Platelet Count 72 thou/uL (130-400); RBC Distribution Width 18.8 % (11.5-14.5); Red Blood Cell (RBC) Count 2.61 mill/uL (4.20-5.40); White Blood Cell (WBC) Count 4.2 thou/uL (4.8-10.8)
[2021-12-30 17:12] LABS: Anisocytosis SLIGHT = 6-15 cells (100X) (0-5/hpf); MDiff Complete? YES; Macrocytosis SLIGHT = 6-15 cells (100X) (0-5/hpf); Platelet Morphology Comment Appears Decreased; Polychromasia SLIGHT = 2-3 cells (100X) (0-2/hpf)
[2021-12-30] MEDS ORDERED: Loratadine 10 MG TAB PO SCH (19:30)
[2021-12-31 05:31] LABS: #Lymphocytes 1.3 thou/uL (1.20-3.40); #Monocytes 0.2 thou/uL (0.11-0.59); #Neutrophils 2.5 thou/uL (1.40-6.50); %Basophils 0.9 % (0.0-1.0); %Eosinophils 0.1 % (0.0-10.0); %Lymphocytes 31.4 % (21.0-51.0); %Monocytes 5.8 % (0.0-10.0); %Neutrophils 61.8 % (42.0-75.0); Hemoglobin 8.5 g/dL (12.0-16.0); Mean Corpuscular HGB CONC 33.5 g/dL (32.0-36.0); Mean Corpuscular Hemoglobin 33.7 pg (27.0-31.0); Mean Platelet Volume 8.7 fL (7.4-10.4); Platelet Count 63 thou/uL (130-400); RBC Distribution Width 18.7 % (11.5-14.5); Red Blood Cell (RBC) Count 2.51 mill/uL (4.20-5.40)
[2021-12-31] MEDS ORDERED: Lidocaine 1% (PF) 30 ML VIAL SC SCH (10:30)
[2021-12-31 10:47] LABS: Fluid, pH - Pleural Fld 7.42 (7.60 - 7.66)
[2021-12-31] MEDS: Loratadine 10 MG TAB PO SCH (11:14)
[2021-12-31] MEDS: Acetaminophen 325 MG TAB PO PRN ×2 (11:16→18:40)
[2021-12-31 12:01] LABS: Pleural Fluid, Protein 4.9 g/dL
[2021-12-31 12:19] LABS: RBC Count-Automated (BF) 391154 /cu.mm; WBC/Nucleated-Auto (BF) 1200 /cu.mm
[2021-12-31 13:18] LABS: BF Color Red; Body Fluid Source Pleural Fluid; Clarity Cloudy/Turbid (Clear); Tube # EDTA
[2021-12-31 13:27] LABS: BF Segmented Neutrophils 25 %; Cell Count Non Hematic 38 %; Lymphocytes 37 %
[2022-01-01] MEDS: Acetaminophen 325 MG TAB PO PRN ×3 (00:05→21:32)
[2022-01-01] MEDS: Loratadine 10 MG TAB PO SCH (08:18)
[2022-01-01 09:22] LABS: Anion Gap 13 mmol/L (10-20); BUN (Urea Nitrogen) 9 mg/dL (9.8-20.1); Calc. Creatinine Clearance 134 mL/min (70-130); Calcium 8.9 mg/dL (7.8-10.44); Carbon Dioxide 27 mmol/L (22-29); Chloride 100 mmol/L (98-107); Estimated GFR 108; Glucose 106 mg/dL (70-105); Potassium 3.8 mmol/L (3.5-5.1); Sodium 136 mmol/L (136-145)
[2022-01-01] MEDS ORDERED: Sodium Chloride 0.9% 250 ML 250 ML IVPB SCH (09:30)
[2022-01-01 09:48] LABS: Hemoglobin 16.8 g/dL (12.0-16.0); Mean Corpuscular HGB CONC 34.5 g/dL (32.0-36.0); Mean Corpuscular Hemoglobin 34.3 pg (27.0-31.0); Mean Corpuscular Volume 99.3 fL (78.0-98.0); Mean Platelet Volume 11.3 fL (7.4-10.4); Platelet Count 26 thou/uL (130-400); Red Blood Cell (RBC) Count 4.89 mill/uL (4.20-5.40); White Blood Cell (WBC) Count 1.5 thou/uL (4.8-10.8)
[2022-01-01 09:58] LABS: Anisocytosis SLIGHT = 6-15 cells (100X) (0-5/hpf); Lymphocytes 18 % (21-51); MDiff Complete? YES; Monocytes 7 % (0-10); Neutrophil 74 % (42-75); Nucleated RBC 4 % (0); Platelet Morphology Comment Appears Decreased; Reactive Lymphocytes 1 % (0-10)
[2022-01-01 11:40] LABS: #Lymphocytes 0.8 thou/uL (1.20-3.40); #Monocytes 0.2 thou/uL (0.11-0.59); #Neutrophils 3.3 thou/uL (1.40-6.50); %Basophils 0.8 % (0.0-1.0); %Eosinophils 0.1 % (0.0-10.0); %Lymphocytes 19.1 % (21.0-51.0); %Monocytes 4.9 % (0.0-10.0); %Neutrophils 75.1 % (42.0-75.0)
[2022-01-01 11:43] LABS: Mean Corpuscular HGB CONC 33.8 g/dL (32.0-36.0); Mean Corpuscular Hemoglobin 34.1 pg (27.0-31.0); Mean Platelet Volume 8.4 fL (7.4-10.4); Platelet Count 43 thou/uL (130-400); RBC Distribution Width 18.2 % (11.5-14.5); Red Blood Cell (RBC) Count 2.34 mill/uL (4.20-5.40); White Blood Cell (WBC) Count 4.4 thou/uL (4.8-10.8)
[2022-01-01 11:55] LABS: Anion Gap 12 mmol/L (10-20); BUN (Urea Nitrogen) 10 mg/dL (9.8-20.1); Calc. Creatinine Clearance 134 mL/min (70-130); Calcium 8.8 mg/dL (7.8-10.44); Carbon Dioxide 27 mmol/L (22-29); Chloride 99 mmol/L (98-107); Estimated GFR 108; Glucose 113 mg/dL (70-105); Potassium 3.9 mmol/L (3.5-5.1); Sodium 134 mmol/L (136-145)
[2022-01-01] MEDS ORDERED: Metoprolol Tartrate 25 MG TAB PO SCH (15:00)
[2022-01-01] MEDS: Sodium Chloride 0.9% 1,000 ML IV SCH (15:09)
[2022-01-01] MEDS: Metoprolol Tartrate 25 MG TAB PO SCH (20:20)
[2022-01-02 07:15] LABS: Free T4 (Free Thyroxine) 0.93 ng/dL (0.70-1.48); Thyroid Stimulating Hormone 0.9663 uIU/mL (0.35-4.94)
[2022-01-02] MEDS: Metoprolol Tartrate 25 MG TAB PO SCH ×2 (09:03→20:48)
[2022-01-02] MEDS: Loratadine 10 MG TAB PO SCH (09:03)
[2022-01-02 09:33] LABS: #Lymphocytes 0.9 thou/uL (1.20-3.40); #Monocytes 0.2 thou/uL (0.11-0.59); #Neutrophils 3.4 thou/uL (1.40-6.50); %Basophils 0.6 % (0.0-1.0); %Eosinophils 0.1 % (0.0-10.0); %Lymphocytes 19.5 % (21.0-51.0); %Monocytes 4.9 % (0.0-10.0); %Neutrophils 74.9 % (42.0-75.0); Hemoglobin 7.5 g/dL (12.0-16.0); Mean Corpuscular HGB CONC 33.6 g/dL (32.0-36.0); Mean Corpuscular Hemoglobin 33.8 pg (27.0-31.0); Mean Platelet Volume 8.1 fL (7.4-10.4); Platelet Count 36 thou/uL (130-400); RBC Distribution Width 17.9 % (11.5-14.5); Red Blood Cell (RBC) Count 2.23 mill/uL (4.20-5.40); White Blood Cell (WBC) Count 4.5 thou/uL (4.8-10.8)
[2022-01-02 09:41] LABS: Anion Gap 11 mmol/L (10-20); BUN (Urea Nitrogen) 8 mg/dL (9.8-20.1); Calc. Creatinine Clearance 130 mL/min (70-130); Calcium 8.7 mg/dL (7.8-10.44); Carbon Dioxide 28 mmol/L (22-29); Chloride 101 mmol/L (98-107); Estimated GFR 107; Glucose 125 mg/dL (70-105); Potassium 3.7 mmol/L (3.5-5.1); Sodium 136 mmol/L (136-145)
[2022-01-02] MEDS: Sodium Chloride 0.9% 1,000 ML IV SCH (11:30)
[2022-01-02] MEDS ORDERED: GASTROGRAFIN 30 ML BOT ONE (15:49)
[2022-01-02] MEDS ORDERED: Iopamidol-370 76% 500 ML 1 ML ONE (15:49)
[2022-01-02] MEDS ORDERED: VANCOMYCIN 1.75 GM/500 ML BAG 1.75 GM in Premix Bag 1 BAG IVPB SCH (16:00)
[2022-01-02] MEDS ORDERED: Cefepime 1 GM in Sodium Chloride 0.9% 100 ML IVPB SCH (17:00)
[2022-01-02] MEDS: Acetaminophen 325 MG TAB PO PRN (20:48)
[2022-01-03] MEDS: Vancomycin 1 GM in Premix Bag 1 BAG IVPB SCH ×3 (01:16→17:11)
[2022-01-03 08:17] LABS: ALT (SGPT) 18 U/L (8-55); AST (SGOT) 16 U/L (5-34); Albumin 2.8 g/dL (3.5-5.0); Alkaline Phosphatase 68 U/L (40-110); Anion Gap 11 mmol/L (10-20); BUN (Urea Nitrogen) 7 mg/dL (9.8-20.1); Bilirubin, Total 0.8 mg/dL (0.2-1.2); Calc. Creatinine Clearance 134 mL/min (70-130); Calcium 8.5 mg/dL (7.8-10.44); Carbon Dioxide 28 mmol/L (22-29); Chloride 102 mmol/L (98-107); Estimated GFR 108; Globulin 3.3 g/dL (2.4-3.5); Glucose 111 mg/dL (70-105); Potassium 3.6 mmol/L (3.5-5.1); Protein, Total 6.1 g/dL (6.0-8.3); Sodium 137 mmol/L (136-145)
[2022-01-03 08:29] LABS: #Lymphocytes 0.8 thou/uL (1.20-3.40); #Monocytes 0.1 thou/uL (0.11-0.59); #Neutrophils 2.8 thou/uL (1.40-6.50); %Basophils 0.2 % (0.0-1.0); %Eosinophils 0.1 % (0.0-10.0); %Lymphocytes 22.6 % (21.0-51.0); %Monocytes 2.2 % (0.0-10.0); Hemoglobin 6.8 g/dL (12.0-16.0); Mean Corpuscular HGB CONC 33.6 g/dL (32.0-36.0); Mean Corpuscular Hemoglobin 34.1 pg (27.0-31.0); Mean Platelet Volume 9.5 fL (7.4-10.4); Platelet Count 29 thou/uL (130-400); RBC Distribution Width 18.1 % (11.5-14.5); White Blood Cell (WBC) Count 3.7 thou/uL (4.8-10.8)
[2022-01-03] MEDS: Metoprolol Tartrate 25 MG TAB PO SCH ×2 (09:04→19:42)
[2022-01-03] MEDS: Loratadine 10 MG TAB PO SCH (09:04)
[2022-01-03] MEDS: Cefepime 1 GM in Sodium Chloride 0.9% 100 ML IVPB SCH ×2 (10:24→23:28)
[2022-01-03] MEDS ORDERED: diphenhydrAMINE 25 MG CAP PO PRN (15:55)
[2022-01-03 16:43] LABS: Vancomycin, Trough 20.1 ug/mL
[2022-01-03] MEDS: Acetaminophen 325 MG TAB PO PRN (19:41)
[2022-01-04] MEDS: Vancomycin 1 GM in Premix Bag 1 BAG IVPB SCH ×2 (00:22→08:10)
[2022-01-04 06:05] LABS: ALT (SGPT) 21 U/L (8-55); AST (SGOT) 18 U/L (5-34); Albumin 2.7 g/dL (3.5-5.0); Alkaline Phosphatase 63 U/L (40-110); Anion Gap 13 mmol/L (10-20); BUN (Urea Nitrogen) 6 mg/dL (9.8-20.1); Bilirubin, Total 1.1 mg/dL (0.2-1.2); Calc. Creatinine Clearance 137 mL/min (70-130); Calcium 8.5 mg/dL (7.8-10.44); Carbon Dioxide 26 mmol/L (22-29); Chloride 104 mmol/L (98-107); Estimated GFR 108; Globulin 3.1 g/dL (2.4-3.5); Glucose 109 mg/dL (70-105); Potassium 3.6 mmol/L (3.5-5.1); Protein, Total 5.8 g/dL (6.0-8.3); Sodium 139 mmol/L (136-145)
[2022-01-04 06:15] LABS: #Lymphocytes 0.9 thou/uL (1.20-3.40); #Monocytes 0.2 thou/uL (0.11-0.59); #Neutrophils 1.8 thou/uL (1.40-6.50); %Basophils 0.4 % (0.0-1.0); %Eosinophils 0.2 % (0.0-10.0); %Lymphocytes 30.4 % (21.0-51.0); Hemoglobin 8.8 g/dL (12.0-16.0); Hypochromia SLIGHT = 6-15 cells (100X) (0-5/hpf); Lymphocytes 34 % (21-51); MDiff Complete? YES; Mean Corpuscular HGB CONC 33.6 g/dL (32.0-36.0); Mean Corpuscular Hemoglobin 32.4 pg (27.0-31.0); Mean Corpuscular Volume 96.3 fL (78.0-98.0); Mean Platelet Volume 9.9 fL (7.4-10.4); Monocytes 4 % (0-10); Neutrophil 62 % (42-75); Platelet Count 21 thou/uL (130-400); Platelet Morphology Comment Appears Decreased; RBC Distribution Width 16.8 % (11.5-14.5); Red Blood Cell (RBC) Count 2.73 mill/uL (4.20-5.40); White Blood Cell (WBC) Count 2.9 thou/uL (4.8-10.8)
[2022-01-04] MEDS: Metoprolol Tartrate 25 MG TAB PO SCH (08:05)
[2022-01-04] MEDS: Loratadine 10 MG TAB PO SCH (08:05)
[2022-01-04] MEDS: Cefepime 1 GM in Sodium Chloride 0.9% 100 ML IVPB SCH (09:26)
[2022-01-04 11:44] VITALS: BP 108/67; TEMP 98.3
== END 2022-01-04 15:22 | disposition home or self-care (01) | DRG 754 ==
LOC: ERS 17:26 → NEURO 20:09
PROVIDERS: ADMIT Student in an Organized Health Care Education/Training Program; ATTEND Internal Medicine
PROC: 30233N1 Transfusion of Nonautologous Red Blood Cells into Peripheral Vein, Percutaneous Approach (ICD-10-PCS; 2021-12-29)
PROC: 02HV33Z Insertion of Infusion Device into Superior Vena Cava, Percutaneous Approach (ICD-10-PCS; 2021-12-29)
PROC: 0W993ZZ Drainage of Right Pleural Cavity, Percutaneous Approach (ICD-10-PCS; principal; 2021-12-30)
PROC: 30233R1 Transfusion of Nonautologous Platelets into Peripheral Vein, Percutaneous Approach (ICD-10-PCS; 2021-12-30)
PROC: 0W9B3ZZ Drainage of Left Pleural Cavity, Percutaneous Approach (ICD-10-PCS; 2021-12-31)
DX: C56.9 Malignant neoplasm of unspecified ovary (principal); D61.810 Antineoplastic chemotherapy induced pancytopenia; J96.01 Acute respiratory failure with hypoxia; A41.9 Sepsis, unspecified organism; C78.2 Secondary malignant neoplasm of pleura; C78.6 Secondary malignant neoplasm of retroperitoneum and peritoneum; J98.11 Atelectasis; J91.0 Malignant pleural effusion; D46.9 Myelodysplastic syndrome, unspecified; D69.6 Thrombocytopenia, unspecified; D69.59 Other secondary thrombocytopenia; T45.1X5A Adverse effect of antineoplastic and immunosuppressive drugs, initial encounter; Z20.822 Contact with and (suspected) exposure to COVID-19; Z90.710 Acquired absence of both cervix and uterus; Z88.5 Allergy status to narcotic agent; Z88.2 Allergy status to sulfonamides; Z88.8 Allergy status to other drugs, medicaments and biological substances
CPT/HCPCS: 36415; 36430; 71045; 71260; 71275; 74177; 80048; 80053; 80202; 82150; 82945; 83615; 83690; 83880; 83986; 84157; 84439; 84443; 84478; 84481; 84484; 85014; 85018; 85025; 85060; 85379; 85610; 85730; 86850; 86900; 86901; 87040; 87070; 87086; 87102; 87116; 87205; 87206; 88112; 88305; 88313; 88341; 88342; 88360; 89051; 93005; 93306; 94760; 96360; J0692; J1642; J2001; J3370; J3490; J7050; P9016; P9035; Q9963; Q9966; Q9967

== ENCOUNTER 2022-01-12 11:50 | Outpatient (CLI) | payer BC | END 2022-01-12 11:51 | disposition home or self-care (01) | LOC: BICRAD 11:50 | PROVIDERS: ATTEND Thoracic Surgery (Cardiothoracic Vascular Surgery) | DX: J90 Pleural effusion, not elsewhere classified (principal) | CPT/HCPCS: 71046 ==

== ENCOUNTER 2022-01-12 13:38 | Outpatient (CLI) | payer BC | END 2022-01-12 13:39 | disposition home or self-care (01) | LOC: LABBT 13:38 | PROVIDERS: ATTEND Thoracic Surgery (Cardiothoracic Vascular Surgery) | DX: J90 Pleural effusion, not elsewhere classified (principal); I51.9 Heart disease, unspecified; D68.9 Coagulation defect, unspecified; Z20.822 Contact with and (suspected) exposure to COVID-19 | CPT/HCPCS: 80048; 85027; 85610; 85730; 86850; 86900; 86901; 87811 ==

== ENCOUNTER 2022-01-13 07:21 | Day surgery (SDC) | payer BC ==
[2022-01-12 13:23] VITALS: BMI 28.5
[2022-01-12 15:03] LABS: Hemoglobin 8.6 g/dL (12.0-15.5); Mean Corpuscular HGB CONC 33.1 g/dL (32.0-36.0); Mean Corpuscular Hemoglobin 31.7 pg (27.0-33.0); Mean Corpuscular Volume 95.9 fl (81.6-98.3); Mean Platelet Volume 12.5 fl (7.4-10.4); Platelet Count 24 10x3/uL (150-450); RBC Distribution Width 17.6 % (11.5-14.5); Red Blood Cell (RBC) Count 2.71 10x6/uL (3.90-5.03); White Blood Cell (WBC) Count 4.1 10x3/uL (3.5-10.5)
[2022-01-12 15:08] LABS: Anion Gap 14 mmol/L (10-20); BUN (Urea Nitrogen) 16 mg/dL (9.8-20.1); Calc. Creatinine Clearance 0 mL/min (70-130); Calcium 8.8 mg/dL (7.8-10.44); Carbon Dioxide 27 mmol/L (22-29); Chloride 101 mmol/L (98-107); Estimated GFR 105; Glucose 126 mg/dL (70-105); Potassium 4.4 mmol/L (3.5-5.1); Sodium 138 mmol/L (136-145)
[2022-01-13] MEDS ORDERED: Midazolam HCl 2 mg/2 ml Vial ONE (10:09)
[2022-01-13] MEDS ORDERED: fentaNYL Citrate/PF 100 MCG/2 ML SYRINGE ONE (10:09)
[2022-01-13] MEDS ORDERED: Sodium Chloride 0.9% 100 ML ONE (10:33)
[2022-01-13] MEDS ORDERED: CEFAZOLIN 2 GM VIAL ONE (10:33)
[2022-01-13] MEDS ORDERED: EPINEPHrine 1 MG/ML AMP ONE (10:57)
[2022-01-13] MEDS ORDERED: Lidocaine 1% w/Epinephrine 1:100K 20 ML VIAL ONE (11:25)
== END 2022-01-13 14:30 | disposition home or self-care (01) ==
LOC: SDC 07:21
PROVIDERS: ATTEND Thoracic Surgery (Cardiothoracic Vascular Surgery)
PROC: 0W9930Z Drainage of Right Pleural Cavity with Drainage Device, Percutaneous Approach (ICD-10-PCS; principal; 2022-01-13)
PROC: 0W9B30Z Drainage of Left Pleural Cavity with Drainage Device, Percutaneous Approach (ICD-10-PCS; principal; 2022-01-13)
DX: C56.9 Malignant neoplasm of unspecified ovary (principal); J91.0 Malignant pleural effusion; D46.9 Myelodysplastic syndrome, unspecified; Z79.899 Other long term (current) drug therapy; Z88.2 Allergy status to sulfonamides; Z88.5 Allergy status to narcotic agent; Z88.8 Allergy status to other drugs, medicaments and biological substances
CPT/HCPCS: 36430; 71045; 80048; 85027; 85610; 85730; 86850; 86900; 86901; C1729; J0171; J0690; J1642; J2250; J3490; P9035

== ENCOUNTER 2022-01-19 11:56 | Inpatient (IN) | payer BC ==
[2022-01-19 17:16] VITALS: BMI 28.6
[2022-01-19] MEDS ORDERED: Prevnar 13-Val Conj/PF 0.5 ML SYRINGE IM ONE (17:45)
[2022-01-19] MEDS ORDERED: Morphine 4 MG/ML VIAL SLOW IVP SCH (19:15)
[2022-01-19] MEDS ORDERED: Ondansetron PF 4 MG/2 ML Vial IVP PRN (20:47)
[2022-01-19] MEDS ORDERED: Acetaminophen 325 MG TAB PO PRN (20:47)
[2022-01-19] MEDS ORDERED: Morphine 2 MG/ML VIAL SLOW IVP SCH (22:00)
[2022-01-19] MEDS ORDERED: Clindamycin/D5W 900 MG in Premix Bag 1 BAG IVPB SCH (22:15)
[2022-01-19] MEDS ORDERED: Piperacillin/Tazobactam 3.375 GM in Sodium Chloride 0.9% 100 ML IVPB SCH (22:30)
[2022-01-19] MEDS: Piperacillin/Tazobactam 3.375 GM in Sodium Chloride 0.9% 100 ML IVPB SCH ×2 (22:33→22:34)
[2022-01-19] MEDS ORDERED: Vancomycin 1.5 GRAM/300 ML BAG 1.5 GM in Premix Bag 1 BAG IVPB SCH (23:00)
[2022-01-20] MEDS: HYDROcodone/Acetaminophen 7.5/325 mg Tablet PO PRN ×6 (00:44→22:16)
[2022-01-20] MEDS ORDERED: Vancomycin 1.5 GRAM/300 ML BAG 1.5 GM in Premix Bag 1 BAG IVPB SCH ×2 (01:00→12:00)
[2022-01-20] MEDS: Piperacillin/Tazobactam 3.375 GM in Sodium Chloride 0.9% 100 ML IVPB SCH ×3 (03:50→18:05)
[2022-01-20] MEDS: Vancomycin 1.5 GRAM/300 ML BAG 1.5 GM in Premix Bag 1 BAG IVPB SCH (14:04)
[2022-01-21] MEDS: Vancomycin 1.5 GRAM/300 ML BAG 1.5 GM in Premix Bag 1 BAG IVPB SCH (01:04)
[2022-01-21] MEDS: HYDROcodone/Acetaminophen 7.5/325 mg Tablet PO PRN ×6 (01:59→21:55)
[2022-01-21] MEDS: Piperacillin/Tazobactam 3.375 GM in Sodium Chloride 0.9% 100 ML IVPB SCH ×3 (02:44→18:06)
[2022-01-21 10:25] LABS: Anion Gap 10 mmol/L (10-20); BUN (Urea Nitrogen) 8 mg/dL (9.8-20.1); Calc. Creatinine Clearance 100 mL/min (70-130); Calcium 8.3 mg/dL (7.8-10.44); Carbon Dioxide 30 mmol/L (22-29); Chloride 100 mmol/L (98-107); Estimated GFR 92; Glucose 129 mg/dL (70-105); Hemoglobin 6.5 g/dL (12.0-16.0); Mean Corpuscular HGB CONC 34.9 g/dL (32.0-36.0); Mean Corpuscular Hemoglobin 32.6 pg (27.0-31.0); Mean Corpuscular Volume 93.3 fL (78.0-98.0); Mean Platelet Volume 13.1 fL (7.4-10.4); Platelet Count 5 thou/uL (130-400); Potassium 3.4 mmol/L (3.5-5.1); RBC Distribution Width 17.1 % (11.5-14.5); Red Blood Cell (RBC) Count 2.01 mill/uL (4.20-5.40); Sodium 137 mmol/L (136-145); White Blood Cell (WBC) Count 1.2 thou/uL (4.8-10.8)
[2022-01-21 10:47] LABS: Band 12 % (5-11); Lymphocytes 53 % (21-51); MDiff Complete? YES; Metamyelocyte 2 % (0-0); Monocytes 4 % (0-10); Neutrophil 28 % (42-75); Ovalocytes SLIGHT = 2-5 cells (100X) (0-1/hpf); Platelet Morphology Comment Appears Decreased; Polychromasia MODERATE = 3-4 cells (100X) (0-2/hpf); Reactive Lymphocytes 1 % (0-10)
[2022-01-21] MEDS ORDERED: TBO-Filgrastim 300 MCG/0.5 ML VIAL SC SCH (15:15)
[2022-01-22] MEDS: HYDROcodone/Acetaminophen 7.5/325 mg Tablet PO PRN ×3 (02:13→10:07)
[2022-01-22] MEDS: Piperacillin/Tazobactam 3.375 GM in Sodium Chloride 0.9% 100 ML IVPB SCH ×2 (02:14→09:22)
[2022-01-22 07:24] VITALS: BP 96/61; TEMP 98.1
[2022-01-22 07:44] LABS: Hemoglobin 5.9 g/dL (12.0-16.0); Mean Corpuscular HGB CONC 33.6 g/dL (32.0-36.0); Mean Corpuscular Hemoglobin 31.4 pg (27.0-31.0); Mean Corpuscular Volume 93.6 fL (78.0-98.0); Mean Platelet Volume 9.6 fL (7.4-10.4); Platelet Count 35 thou/uL (130-400); RBC Distribution Width 17.2 % (11.5-14.5); Red Blood Cell (RBC) Count 1.87 mill/uL (4.20-5.40); White Blood Cell (WBC) Count 1.6 thou/uL (4.8-10.8)
[2022-01-22 07:50] LABS: Anion Gap 15 mmol/L (10-20); BUN (Urea Nitrogen) 6 mg/dL (9.8-20.1); Calc. Creatinine Clearance 101 mL/min (70-130); Calcium 7.7 mg/dL (7.8-10.44); Carbon Dioxide 26 mmol/L (22-29); Chloride 104 mmol/L (98-107); Estimated GFR 94; Glucose 104 mg/dL (70-105); Potassium 3.2 mmol/L (3.5-5.1); Sodium 142 mmol/L (136-145)
[2022-01-22 08:18] LABS: Anisocytosis SLIGHT = 6-15 cells (100X) (0-5/hpf); Band 27 % (5-11); Lymphocytes 34 % (21-51); MDiff Complete? YES; Monocytes 11 % (0-10); Neutrophil 25 % (42-75); Platelet Morphology Comment Appears Decreased; Polychromasia SLIGHT = 2-3 cells (100X) (0-2/hpf); Reactive Lymphocytes 3 % (0-10)
[2022-01-22] MEDS ORDERED: TBO-Filgrastim 300 MCG/0.5 ML VIAL SC SCH (11:00)
[2022-01-22] MEDS ORDERED: Acetaminophen 325 MG TAB PO SCH (11:00)
[2022-01-22] MEDS ORDERED: Potassium Chloride 20 MEQ TAB PO SCH (11:30)
== END 2022-01-22 16:37 | disposition home or self-care (01) | DRG 603 ==
LOC: T4-B 11:56
PROVIDERS: ADMIT Internal Medicine; ATTEND Internal Medicine
PROC: 6A550Z2 Pheresis of Platelets, Single (ICD-10-PCS; 2022-01-21)
PROC: 30233N1 Transfusion of Nonautologous Red Blood Cells into Peripheral Vein, Percutaneous Approach (ICD-10-PCS; principal; 2022-01-22)
DX: L03.011 Cellulitis of right finger (principal); D61.818 Other pancytopenia; C79.9 Secondary malignant neoplasm of unspecified site; S61.255A Open bite of left ring finger without damage to nail, initial encounter; Z23 Encounter for immunization; W55.01XA Bitten by cat, initial encounter; D46.9 Myelodysplastic syndrome, unspecified; E87.6 Hypokalemia; Z88.5 Allergy status to narcotic agent; Z88.2 Allergy status to sulfonamides; Z88.8 Allergy status to other drugs, medicaments and biological substances; Z79.899 Other long term (current) drug therapy; Z90.710 Acquired absence of both cervix and uterus; Z90.722 Acquired absence of ovaries, bilateral; Z98.890 Other specified postprocedural states; Z80.3 Family history of malignant neoplasm of breast; Z85.43 Personal history of malignant neoplasm of ovary
CPT/HCPCS: 36430; 80048; 85025; 86850; 86900; 86901; J1447; J1642; J2270; J2543; J3370; J3490; P9016; P9035

== ENCOUNTER 2022-02-09 12:12 | Day surgery (SDC) | payer BC ==
[2022-02-09] MEDS ORDERED: Acetaminophen 500 MG TAB ONE (12:29)
[2022-02-09] MEDS ORDERED: diphenhydrAMINE 25 MG CAP ONE (12:29)
[2022-02-09 15:39] VITALS: BP 110/54; TEMP 97.9
== END 2022-02-09 15:41 | disposition home or self-care (01) ==
LOC: ONC/OP 12:12
PROVIDERS: ATTEND Internal Medicine Hematology & Oncology
PROC: 30233N1 Transfusion of Nonautologous Red Blood Cells into Peripheral Vein, Percutaneous Approach (ICD-10-PCS; principal; 2022-02-09)
DX: D64.9 Anemia, unspecified (principal); D69.6 Thrombocytopenia, unspecified; Z88.2 Allergy status to sulfonamides; Z88.5 Allergy status to narcotic agent; Z88.8 Allergy status to other drugs, medicaments and biological substances
CPT/HCPCS: 36430; 86850; 86900; 86901; P9016

== ENCOUNTER 2022-02-23 12:16 | Emergency (ER) | payer BC ==
[2022-02-23 13:18] LABS: Hemoglobin 6.7 g/dL (12.0-16.0); Mean Corpuscular HGB CONC 33.9 g/dL (32.0-36.0); Mean Corpuscular Hemoglobin 30.5 pg (27.0-31.0); Platelet Count 22 thou/uL (130-400); RBC Distribution Width 24.4 % (11.5-14.5); Red Blood Cell (RBC) Count 2.19 mill/uL (4.20-5.40); White Blood Cell (WBC) Count 2.9 thou/uL (4.8-10.8)
[2022-02-23 13:36] LABS: #Lymphocytes 1.3 thou/uL (1.20-3.40); #Monocytes 0.1 thou/uL (0.11-0.59); #Neutrophils 1.4 thou/uL (1.40-6.50); %Basophils 0.3 % (0.0-1.0); %Eosinophils 0.3 % (0.0-10.0); %Lymphocytes 45.4 % (21.0-51.0); %Monocytes 5.1 % (0.0-10.0); %Neutrophils 49.1 % (42.0-75.0); Anisocytosis MODERATE=16-30 cells (100X) (0-5/hpf); Blister Cells SLIGHT = 2-5 cells (100X) (0-1/hpf); MDiff Complete? YES; Ovalocytes SLIGHT = 2-5 cells (100X) (0-1/hpf); Platelet Morphology Comment Appears Decreased; Poikilocytosis SLIGHT = 6-15 cells (100X) (0-5/hpf); Polychromasia MODERATE = 3-4 cells (100X) (0-2/hpf); Schistocytes SLIGHT = 2-5 cells (100X) (0-1/hpf); Tear Drops SLIGHT = 2-5 cells (100X) (0-1/hpf)
[2022-02-23 13:42] LABS: ALT (SGPT) 11 U/L (8-55); AST (SGOT) 14 U/L (5-34); Albumin 3.5 g/dL (3.5-5.0); Alkaline Phosphatase 93 U/L (40-110); Anion Gap 13 mmol/L (10-20); BUN (Urea Nitrogen) 12 mg/dL (9.8-20.1); Bilirubin, Total 0.5 mg/dL (0.2-1.2); Calc. Creatinine Clearance 0 mL/min (70-130); Calcium 8.9 mg/dL (7.8-10.44); Carbon Dioxide 31 mmol/L (22-29); Chloride 95 mmol/L (98-107); Estimated GFR 84; Globulin 3.1 g/dL (2.4-3.5); Glucose 114 mg/dL (70-105); Potassium 3.5 mmol/L (3.5-5.1); Protein, Total 6.6 g/dL (6.0-8.3); Sodium 135 mmol/L (136-145)
== END 2022-02-23 17:02 | disposition home or self-care (01) ==
LOC: ERS 12:16
DX: D64.9 Anemia, unspecified (principal); G62.9 Polyneuropathy, unspecified; Z85.43 Personal history of malignant neoplasm of ovary; Z79.899 Other long term (current) drug therapy
CPT/HCPCS: 36415; 36430; 80053; 85025; 86304; 86850; 86900; 86901; J1642; P9016

== ENCOUNTER 2022-03-09 12:27 | Day surgery (SDC) | payer BC ==
[~2022-03-09 12:27] MED LIST changes: +Acetaminophen 500 MG TAB PO SCH; -ISOVUE-370 76%-LOCM 1 ML ONE; +diphenhydrAMINE 25 MG CAP PO SCH
[2022-03-09] MEDS ORDERED: diphenhydrAMINE 25 MG CAP ONE (12:42)
[2022-03-09] MEDS ORDERED: Acetaminophen 500 MG TAB ONE (12:42)
[2022-03-09 15:21] VITALS: BP 95/48; TEMP 98.1
== END 2022-03-09 15:36 | disposition home or self-care (01) ==
LOC: ONC/OP 12:27
PROVIDERS: ATTEND Internal Medicine Hematology & Oncology
PROC: 30233N1 Transfusion of Nonautologous Red Blood Cells into Peripheral Vein, Percutaneous Approach (ICD-10-PCS; principal; 2022-03-09)
DX: D64.9 Anemia, unspecified (principal); Z88.2 Allergy status to sulfonamides; Z88.5 Allergy status to narcotic agent; Z88.8 Allergy status to other drugs, medicaments and biological substances
CPT/HCPCS: 36430; 86850; 86900; 86901; P9016

== ENCOUNTER 2022-03-29 09:58 | Outpatient (CLI) | payer BC ==
[2022-03-28 13:34] VITALS: BMI 28.4
== END 2022-03-29 09:59 | disposition home or self-care (01) ==
LOC: ULT 09:58
PROVIDERS: ATTEND Internal Medicine Hematology & Oncology
DX: C56.9 Malignant neoplasm of unspecified ovary (principal); D69.59 Other secondary thrombocytopenia; D46.Z Other myelodysplastic syndromes; D70.8 Other neutropenia; R18.8 Other ascites
CPT/HCPCS: 76705

== ENCOUNTER 2022-03-31 11:01 | Day surgery (SDC) | payer BC ==
[2022-03-31] MEDS ORDERED: Acetaminophen 500 MG TAB ONE (11:39)
[2022-03-31] MEDS ORDERED: diphenhydrAMINE 25 MG CAP ONE (11:39)
[2022-03-31 14:52] VITALS: BP 108/58
[2022-03-31 14:53] VITALS: TEMP 98.2
[2022-03-31] MEDS ORDERED: FLU VACC QS2022-23(6MOS UP)/PF 60 MCG/0.5 ML SYRINGE IM ONE (16:00)
== END 2022-03-31 14:54 | disposition home or self-care (01) ==
LOC: ONC/OP 11:01
PROVIDERS: ATTEND Internal Medicine Hematology & Oncology
PROC: 30233N1 Transfusion of Nonautologous Red Blood Cells into Peripheral Vein, Percutaneous Approach (ICD-10-PCS; principal; 2022-03-31)
DX: D64.9 Anemia, unspecified (principal); D69.6 Thrombocytopenia, unspecified; Z88.2 Allergy status to sulfonamides; Z88.5 Allergy status to narcotic agent; Z88.8 Allergy status to other drugs, medicaments and biological substances
CPT/HCPCS: 36430; 86850; 86900; 86901; P9040

== ENCOUNTER 2022-04-05 12:27 | Outpatient (CLI) | payer BC | END 2022-04-05 12:28 | disposition home or self-care (01) | LOC: SCSRAD 12:27 | PROVIDERS: ATTEND Nurse Practitioner Family | DX: C56.9 Malignant neoplasm of unspecified ovary (principal); D69.59 Other secondary thrombocytopenia; D46.Z Other myelodysplastic syndromes; D70.8 Other neutropenia; J90 Pleural effusion, not elsewhere classified | CPT/HCPCS: 71046 ==

== ENCOUNTER 2022-04-18 10:08 | Day surgery (SDC) | payer BC ==
[~2022-04-18 10:08] MED LIST changes: +Acetaminophen 500 MG TAB ONE; +diphenhydrAMINE 25 MG CAP ONE
[2022-04-18 17:08] VITALS: BP 142/67; TEMP 97.6
== END 2022-04-18 17:12 | disposition home or self-care (01) ==
LOC: ONC/OP 10:08
PROVIDERS: ATTEND Internal Medicine Hematology & Oncology
PROC: 30233N1 Transfusion of Nonautologous Red Blood Cells into Peripheral Vein, Percutaneous Approach (ICD-10-PCS; principal; 2022-04-18)
DX: D64.9 Anemia, unspecified (principal); D69.6 Thrombocytopenia, unspecified; Z88.2 Allergy status to sulfonamides; Z88.5 Allergy status to narcotic agent; Z88.8 Allergy status to other drugs, medicaments and biological substances
CPT/HCPCS: 36430; 86850; 86900; 86901; J1642; P9016

== ENCOUNTER 2022-04-20 07:16 | Day surgery (SDC) | payer BC ==
[2022-04-19 08:34] VITALS: BMI 28.3
[2022-04-20 08:35] LABS: Hemoglobin 8.9 g/dL (12.0-16.0); Mean Corpuscular HGB CONC 33.1 g/dL (32.0-36.0); Mean Corpuscular Hemoglobin 31.5 pg (27.0-31.0); Mean Corpuscular Volume 95.1 fl (78.0-98.0); Mean Platelet Volume 13.4 fL (7.4-10.4); Platelet Count 16 thou/uL (130-400); RBC Distribution Width 17.2 % (11.5-14.5); Red Blood Cell (RBC) Count 2.84 mill/uL (4.20-5.40)
[2022-04-20 08:38] LABS: INR-International Normal Ratio 1.1; Prothrombin Time 14.4 sec (12.0-14.7)
[2022-04-20 09:14] LABS: Band 5 % (5-11); Lymphocytes 59 % (21-51); MDiff Complete? YES; Metamyelocyte 1 % (0-0); Monocytes 13 % (0-10); Neutrophil 21 % (42-75); Nucleated RBC 1 % (0); Ovalocytes SLIGHT = 2-5 cells (100X) (0-1/hpf); Platelet Morphology Comment Appears Decreased; Polychromasia SLIGHT = 2-3 cells (100X) (0-2/hpf); White Blood Cell (WBC) Count 2.1 thou/uL (4.8-10.8)
[2022-04-20] MEDS ORDERED: Sodium Bicarbonate 2.5 MEQ/5 ML VIAL ONE (11:05)
[2022-04-20] MEDS ORDERED: Lidocaine 2% PF 5 ML VIAL ONE (11:05)
[2022-04-20 12:26] VITALS: BP 97/46; TEMP 98.3
[2022-04-20] MEDS ORDERED: FLU VACC QS2022-23(6MOS UP)/PF 60 MCG/0.5 ML SYRINGE IM ONE (18:00)
== END 2022-04-20 11:50 | disposition home or self-care (01) ==
LOC: ULT 07:16
PROVIDERS: ATTEND Nurse Practitioner Acute Care
PROC: 0W9G3ZZ Drainage of Peritoneal Cavity, Percutaneous Approach (ICD-10-PCS; principal; 2022-04-20)
DX: R18.8 Other ascites (principal); D46.Z Other myelodysplastic syndromes; D61.818 Other pancytopenia; C56.1 Malignant neoplasm of right ovary; J91.0 Malignant pleural effusion; Z79.899 Other long term (current) drug therapy; Z88.2 Allergy status to sulfonamides; Z88.5 Allergy status to narcotic agent; Z88.8 Allergy status to other drugs, medicaments and biological substances
CPT/HCPCS: 36430; 49083; 85025; 85610; 86850; 86900; 86901; J1642; J2001; P9035

== ENCOUNTER → 2022-04-28 | Day surgery (SDC) | payer BC ==
[~2022-04-28] MED LIST changes: -Acetaminophen 500 MG TAB PO SCH; -diphenhydrAMINE 25 MG CAP PO SCH
[2022-04-28 16:38] VITALS: BP 119/52; TEMP 97.9
== END | disposition home or self-care (01) ==
LOC: ONC/OP 14:24
PROVIDERS: ATTEND Internal Medicine Hematology & Oncology
PROC: 30233R1 Transfusion of Nonautologous Platelets into Peripheral Vein, Percutaneous Approach (ICD-10-PCS; principal; 2022-04-28)
DX: D69.6 Thrombocytopenia, unspecified (principal); D64.9 Anemia, unspecified; Z88.2 Allergy status to sulfonamides; Z88.5 Allergy status to narcotic agent; Z88.8 Allergy status to other drugs, medicaments and biological substances
CPT/HCPCS: 36430; 86304; 86850; 86900; 86901; J1642; P9035

== ENCOUNTER 2022-05-24 08:44 | Day surgery (SDC) | payer BC, OTHER ==
[2022-05-24] MEDS ORDERED: Acetaminophen 500 MG TAB ONE (09:38)
[2022-05-24 10:30] VITALS: TEMP 98.1
[2022-05-24 11:14] VITALS: BP 107/65
== END 2022-05-24 10:25 | disposition home or self-care (01) ==
LOC: ONC/OP 08:44
PROVIDERS: ATTEND Internal Medicine Hematology & Oncology
PROC: 30233R1 Transfusion of Nonautologous Platelets into Peripheral Vein, Percutaneous Approach (ICD-10-PCS; principal; 2022-05-24)
DX: D69.6 Thrombocytopenia, unspecified (principal); D64.9 Anemia, unspecified; Z88.2 Allergy status to sulfonamides; Z88.5 Allergy status to narcotic agent; Z88.8 Allergy status to other drugs, medicaments and biological substances
CPT/HCPCS: 36430; 86850; 86900; 86901; J1642; P9035

== ENCOUNTER 2022-05-30 14:50 | Day surgery (SDC) | payer BC ==
[2022-05-30] MEDS ORDERED: diphenhydrAMINE 25 MG CAP PO SCH (15:15)
[2022-05-30] MEDS ORDERED: Acetaminophen 500 MG TAB PO SCH (15:15)
[2022-05-30] MEDS ORDERED: Acetaminophen 500 MG TAB ONE (15:33)
[2022-05-30] MEDS ORDERED: diphenhydrAMINE 25 MG CAP ONE (15:33)
[2022-05-30 17:01] VITALS: BP 101/55; TEMP 98.1
== END 2022-05-30 17:02 | disposition home or self-care (01) ==
LOC: ONC/OP 14:50
PROVIDERS: ATTEND Internal Medicine Hematology & Oncology
PROC: 30233R1 Transfusion of Nonautologous Platelets into Peripheral Vein, Percutaneous Approach (ICD-10-PCS; principal; 2022-05-30)
DX: D69.6 Thrombocytopenia, unspecified (principal); D64.9 Anemia, unspecified; Z88.2 Allergy status to sulfonamides; Z88.5 Allergy status to narcotic agent; Z88.8 Allergy status to other drugs, medicaments and biological substances
CPT/HCPCS: 36430; 86850; 86900; 86901; J1642; P9035

== ENCOUNTER 2022-06-05 16:32 | Inpatient (IN) | payer BC ==
[2022-06-05 18:36] LABS: Hemoglobin 5.9 g/dL (12.0-16.0); Mean Corpuscular HGB CONC 32.4 g/dL (32.0-36.0); Mean Corpuscular Hemoglobin 30.9 pg (27.0-31.0); Mean Corpuscular Volume 95.3 fl (78.0-98.0); Mean Platelet Volume 13.6 fL (7.4-10.4); Platelet Count 7 10x3/uL (130-400); RBC Distribution Width 16.5 % (11.5-14.5); Red Blood Cell (RBC) Count 1.89 mill/uL (4.20-5.40)
[2022-06-05 18:48] LABS: ALT (SGPT) 11 U/L (8-55); AST (SGOT) 11 U/L (5-34); Albumin 2.7 g/dL (3.5-5.0); Alkaline Phosphatase 81 U/L (40-110); Anion Gap 10 mmol/L (10-20); BUN (Urea Nitrogen) 18 mg/dL (9.8-20.1); Bilirubin, Total 0.8 mg/dL (0.2-1.2); Calc. Creatinine Clearance 0 mL/min (70-130); Calcium 8.3 mg/dL (7.8-10.44); Carbon Dioxide 29 mmol/L (22-29); Chloride 97 mmol/L (98-107); Estimated GFR 75; Globulin 3.6 g/dL (2.4-3.5); Glucose 164 mg/dL (70-105); Potassium 3.8 mmol/L (3.5-5.1); Protein, Total 6.3 g/dL (6.0-8.3); Sodium 132 mmol/L (136-145)
[2022-06-05 18:55] LABS: MDiff Complete? YES; White Blood Cell (WBC) Count 3.8 10x3/uL (4.8-10.8)
[2022-06-05 18:56] LABS: Anisocytosis SLIGHT = 6-15 cells (100X) (0-5/hpf); Band 24 % (5-11); Blast 2 % (0-0); Lymphocytes 23 % (21-51); Metamyelocyte 10 % (0-0); Monocytes 5 % (0-10); Myelocyte 5 % (0-0); Neutrophil 31 % (42-75); Nucleated RBC 10 % (0); Ovalocytes SLIGHT = 2-5 cells (100X) (0-1/hpf); Platelet Morphology Comment Appears Decreased; Polychromasia MODERATE = 3-4 cells (100X) (0-2/hpf); Reflex for Review?? NO
[2022-06-05] MEDS ORDERED: Acetaminophen 500 MG TAB ONE (19:23)
[2022-06-05] MEDS ORDERED: diphenhydrAMINE 50 MG/ML VIAL ONE (19:23)
[2022-06-05] MEDS ORDERED: diphenhydrAMINE 12.5 MG/5 ML UDCUP ONE (19:23)
[2022-06-06 00:30] LABS: Band 6 % (5-11); Hemoglobin 6.2 g/dL (12.0-16.0); Hypochromia SLIGHT = 6-15 cells (100X) (0-5/hpf); Lymphocytes 54 % (21-51); MDiff Complete? YES; Mean Corpuscular HGB CONC 33.1 g/dL (32.0-36.0); Mean Corpuscular Hemoglobin 30.6 pg (27.0-31.0); Mean Corpuscular Volume 92.4 fl (78.0-98.0); Mean Platelet Volume 7.9 fL (7.4-10.4); Monocytes 10 % (0-10); Neutrophil 26 % (42-75); Nucleated RBC 5 % (0); Platelet Count 38 10x3/uL (130-400); Platelet Morphology Comment Appears Decreased; RBC Distribution Width 15.2 % (11.5-14.5); Reactive Lymphocytes 4 % (0-10); Red Blood Cell (RBC) Count 2.01 mill/uL (4.20-5.40); White Blood Cell (WBC) Count 3.4 10x3/uL (4.8-10.8)
[2022-06-06] MEDS ORDERED: Acetaminophen 650 MG Suppository PR PRN (00:51)
[2022-06-06] MEDS ORDERED: Senokot S 8.6-50 MG TAB PO PRN (00:51)
[2022-06-06] MEDS ORDERED: Ondansetron ODT 4 MG TAB PO PRN (00:51)
[2022-06-06] MEDS ORDERED: Bisacodyl 5 MG TAB PO PRN (00:51)
[2022-06-06] MEDS ORDERED: Bisacodyl 10 MG SUPP PR PRN (00:51)
[2022-06-06 06:17] LABS: SARS-CoV-2 NAA Rapid Test Not Detected (NotDetected)
[2022-06-06] MEDS ORDERED: Acetaminophen 325 MG TAB ONE (06:27)
[2022-06-06] MEDS: Acetaminophen 325 MG TAB PO PRN (06:35)
[2022-06-06] MEDS ORDERED: Vancomycin 1.5 GRAM/300 ML BAG 1.5 GM in Premix Bag 1 BAG IVPB SCH (07:00)
[2022-06-06] MEDS ORDERED: Cefepime 2 GM in Sodium Chloride 0.9% 100 ML IVPB ONE (07:58)
[2022-06-06 08:20] LABS: Bacteria/HPF None Seen HPF (None Seen); Bilirubin Negative (Negative); Blood, Urine Negative (Negative); Clarity Extra Turbid (Clear); Glucose, Urine (Dipstick) Normal (Negative); Ketone, Urine Negative (Negative); Leukocyte Negative Leu/uL (Negative); Nitrite Negative (Negative); Protein, Urine (Dipstick) 50 mg/dL (Neg-Trace); RBC/HPF 0-3 HPF (0-3); Specific Gravity, Urine 1.027 (1.002-1.036); Squamous Epithelial 0-3 HPF (0-3); WBC/HPF 0-3 HPF (0-3); pH, Urine 5.5 (5.0-9.0)
[2022-06-06 08:44] LABS: Hemoglobin 7.9 g/dL (12.0-16.0); Mean Corpuscular HGB CONC 33.1 g/dL (32.0-36.0); Mean Corpuscular Hemoglobin 30.4 pg (27.0-31.0); Mean Corpuscular Volume 91.9 fl (78.0-98.0); Mean Platelet Volume 9.1 fL (7.4-10.4); Platelet Count 32 10x3/uL (130-400); RBC Distribution Width 14.3 % (11.5-14.5); White Blood Cell (WBC) Count 2.8 10x3/uL (4.8-10.8)
[2022-06-06 08:45] LABS: Lactic Acid 1.9 mmol/L (0.5-2.2)
[2022-06-06 08:48] LABS: Anion Gap 14 mmol/L (10-20); BUN (Urea Nitrogen) 16 mg/dL (9.8-20.1); Calc. Creatinine Clearance 79 mL/min (70-130); Calcium 8.3 mg/dL (7.8-10.44); Carbon Dioxide 24 mmol/L (22-29); Chloride 99 mmol/L (98-107); Estimated GFR 89; Glucose 137 mg/dL (70-105); Potassium 3.6 mmol/L (3.5-5.1); Sodium 133 mmol/L (136-145)
[2022-06-06] MEDS ORDERED: Cefepime 2 GM in Sodium Chloride 0.9% 100 ML IVPB SCH (09:00)
[2022-06-06 09:15] LABS: MDiff Complete? YES
[2022-06-06 09:16] LABS: Band 5 % (5-11); Differential Comment Blast-Like Cell(s); Lymphocytes 48 % (21-51); Metamyelocyte 1 % (0-0); Monocytes 29 % (0-10); Neutrophil 11 % (42-75); Nucleated RBC 2 % (0); Platelet Morphology Comment Appears Decreased; Polychromasia SLIGHT = 2-3 cells (100X) (0-2/hpf); Reactive Lymphocytes 3 % (0-10)
[2022-06-06] MEDS: Sodium Chloride 0.9% 1,000 ML IV SCH ×3 (10:49→18:07)
[2022-06-06] MEDS ORDERED: Sodium Chloride 0.9% 500 ML IV SCH (13:15)
[2022-06-06] MEDS ORDERED: Iopamidol 370 76% 100 ML VIAL ONE (13:37)
[2022-06-06] MEDS ORDERED: Metoprolol Tartrate 5 MG/5 ML VIAL IVP SCH (15:12)
[2022-06-06] MEDS: Azithromycin 500 MG in Sodium Chloride 0.9% 250 ML 250 ML IVPB SCH (16:17)
[2022-06-06] MEDS: Vancomycin 1 GM in Premix Bag 1 BAG IVPB SCH (19:57)
[2022-06-06] MEDS ORDERED: Enoxaparin Sodium 40 MG/0.4 ML SYRINGE SC SCH (21:00)
[2022-06-06] MEDS: HYDROcodone/Acetaminophen 10/325 mg Tablet PO PRN (21:22)
[2022-06-06] MEDS: Cefepime 1 GM in Sodium Chloride 0.9% 100 ML IVPB SCH (21:24)
[2022-06-07] MEDS: Sodium Chloride 0.9% 1,000 ML IV SCH ×2 (02:37→10:28)
[2022-06-07] MEDS: Guaifenesin DM 100-10/5 ML UDCUP PO PRN ×2 (02:43→08:46)
[2022-06-07 05:24] LABS: Hemoglobin 7.5 g/dL (12.0-16.0); Mean Corpuscular HGB CONC 31.6 g/dL (32.0-36.0); Mean Corpuscular Hemoglobin 29.3 pg (27.0-31.0); Mean Corpuscular Volume 92.8 fl (78.0-98.0); Mean Platelet Volume 10.3 fL (7.4-10.4); Platelet Count 16 10x3/uL (130-400); RBC Distribution Width 14.5 % (11.5-14.5); Red Blood Cell (RBC) Count 2.55 mill/uL (4.20-5.40); White Blood Cell (WBC) Count 2.7 10x3/uL (4.8-10.8)
[2022-06-07] MEDS: Acetaminophen 325 MG TAB PO PRN ×3 (05:26→19:34)
[2022-06-07 05:30] LABS: Anion Gap 12 mmol/L (10-20); BUN (Urea Nitrogen) 11 mg/dL (9.8-20.1); Calc. Creatinine Clearance 99 mL/min (70-130); Calcium 8.3 mg/dL (7.8-10.44); Carbon Dioxide 23 mmol/L (22-29); Chloride 103 mmol/L (98-107); Estimated GFR 104; Glucose 117 mg/dL (70-105); Potassium 3.7 mmol/L (3.5-5.1); Sodium 134 mmol/L (136-145)
[2022-06-07 05:48] LABS: Band 17 % (5-11); Burr Cells SLIGHT = 2-5 cells (100X) (0-1/hpf); Hypochromia SLIGHT = 6-15 cells (100X) (0-5/hpf); Lymphocytes 48 % (21-51); MDiff Complete? YES; Metamyelocyte 9 % (0-0); Monocytes 9 % (0-10); Neutrophil 17 % (42-75); Nucleated RBC 8 % (0); Platelet Morphology Comment Appears Decreased; Polychromasia SLIGHT = 2-3 cells (100X) (0-2/hpf)
[2022-06-07] MEDS ORDERED: Metoprolol Tartrate 5 MG/5 ML VIAL IVP SCH (06:15)
[2022-06-07 07:16] LABS: Magnesium 1.5 mg/dL (1.6-2.6)
[2022-06-07] MEDS: Vancomycin 1 GM in Premix Bag 1 BAG IVPB SCH ×2 (08:43→20:53)
[2022-06-07] MEDS: Metoprolol Tartrate 25 MG TAB PO SCH ×2 (08:43→20:45)
[2022-06-07] MEDS: Cefepime 1 GM in Sodium Chloride 0.9% 100 ML IVPB SCH (08:43)
[2022-06-07] MEDS ORDERED: Magnesium 2 GM/50 ML(in water) 2 GM in Premix Bag 1 BAG IVPB SCH (09:15)
[2022-06-07] MEDS: Azithromycin 500 MG in Sodium Chloride 0.9% 250 ML 250 ML IVPB SCH (15:36)
[2022-06-07 19:38] LABS: Vancomycin, Trough 12.9 ug/mL
[2022-06-07] MEDS: Cefepime 2 GM in Sodium Chloride 0.9% 100 ML IVPB SCH (20:44)
[2022-06-07] MEDS: HYDROcodone/Acetaminophen 10/325 mg Tablet PO PRN (20:45)
[2022-06-08] MEDS: Guaifenesin DM 100-10/5 ML UDCUP PO PRN ×2 (01:59→17:16)
[2022-06-08 05:24] LABS: Hemoglobin 8.1 g/dL (12.0-16.0); Mean Corpuscular HGB CONC 32.9 g/dL (32.0-36.0); Mean Corpuscular Hemoglobin 30.8 pg (27.0-31.0); Mean Corpuscular Volume 93.7 fl (78.0-98.0); Mean Platelet Volume 10.8 fL (7.4-10.4); Platelet Count 13 10x3/uL (130-400); RBC Distribution Width 14.6 % (11.5-14.5); Red Blood Cell (RBC) Count 2.61 mill/uL (4.20-5.40); White Blood Cell (WBC) Count 4.9 10x3/uL (4.8-10.8)
[2022-06-08] MEDS: Metoprolol Tartrate 25 MG TAB PO SCH ×2 (09:06→21:25)
[2022-06-08] MEDS: Cefepime 2 GM in Sodium Chloride 0.9% 100 ML IVPB SCH ×2 (09:07→21:24)
[2022-06-08] MEDS: VANCOMYCIN 1.25 GM/250 ML BAG 1.25 GM in Premix Bag 1 BAG IVPB SCH ×2 (10:22→21:34)
[2022-06-08] MEDS: Azithromycin 500 MG in Sodium Chloride 0.9% 250 ML 250 ML IVPB SCH (17:02)
[2022-06-08] MEDS: Acetaminophen 325 MG TAB PO PRN (17:23)
[2022-06-08] MEDS: HYDROcodone/Acetaminophen 10/325 mg Tablet PO PRN (21:25)
[2022-06-09 05:31] LABS: Hemoglobin 7.7 g/dL (12.0-16.0); Mean Corpuscular HGB CONC 32.6 g/dL (32.0-36.0); Mean Corpuscular Hemoglobin 31.7 pg (27.0-31.0); Mean Corpuscular Volume 97.1 fl (78.0-98.0); Mean Platelet Volume 12.8 fL (7.4-10.4); Platelet Count 12 10x3/uL (130-400); RBC Distribution Width 14.9 % (11.5-14.5); Red Blood Cell (RBC) Count 2.43 mill/uL (4.20-5.40); White Blood Cell (WBC) Count 8.6 10x3/uL (4.8-10.8)
[2022-06-09 05:36] LABS: Anion Gap 13 mmol/L (10-20); BUN (Urea Nitrogen) 10 mg/dL (9.8-20.1); Calc. Creatinine Clearance 112 mL/min (70-130); Calcium 7.6 mg/dL (7.8-10.44); Carbon Dioxide 19 mmol/L (22-29); Chloride 103 mmol/L (98-107); Estimated GFR 108; Glucose 117 mg/dL (70-105); Potassium 3.7 mmol/L (3.5-5.1); Sodium 131 mmol/L (136-145)
[2022-06-09 07:59] LABS: Vancomycin, Trough 16.3 ug/mL
[2022-06-09] MEDS ORDERED: Furosemide 20 MG/2 ML VIAL SLOW IVP SCH (08:15)
[2022-06-09] MEDS: Metoprolol Tartrate 25 MG TAB PO SCH ×2 (09:11→20:10)
[2022-06-09] MEDS: Cefepime 2 GM in Sodium Chloride 0.9% 100 ML IVPB SCH ×2 (09:22→20:10)
[2022-06-09] MEDS: VANCOMYCIN 1.25 GM/250 ML BAG 1.25 GM in Premix Bag 1 BAG IVPB SCH ×2 (10:23→22:07)
[2022-06-09] MEDS ORDERED: predniSONE 20 MG TAB PO SCH (16:00)
[2022-06-09] MEDS: Azithromycin 500 MG in Sodium Chloride 0.9% 250 ML 250 ML IVPB SCH (16:51)
[2022-06-09] MEDS: Acetaminophen 325 MG TAB PO PRN (18:06)
[2022-06-10 05:13] LABS: Hemoglobin 7.4 g/dL (12.0-16.0); Mean Corpuscular HGB CONC 32.9 g/dL (32.0-36.0); Mean Corpuscular Hemoglobin 31.2 pg (27.0-31.0); Mean Corpuscular Volume 94.5 fl (78.0-98.0); Mean Platelet Volume 14.5 fL (7.4-10.4); Platelet Count 7 10x3/uL (130-400); RBC Distribution Width 15.2 % (11.5-14.5); Red Blood Cell (RBC) Count 2.38 mill/uL (4.20-5.40); White Blood Cell (WBC) Count 8.5 10x3/uL (4.8-10.8)
[2022-06-10 05:23] LABS: Anion Gap 12 mmol/L (10-20); BUN (Urea Nitrogen) 18 mg/dL (9.8-20.1); Calc. Creatinine Clearance 125 mL/min (70-130); Calcium 8.3 mg/dL (7.8-10.44); Carbon Dioxide 25 mmol/L (22-29); Chloride 101 mmol/L (98-107); Estimated GFR 107; Glucose 159 mg/dL (70-105); Potassium 3.5 mmol/L (3.5-5.1); Sodium 134 mmol/L (136-145)
[2022-06-10 07:57] LABS: Magnesium 2.1 mg/dL (1.6-2.6); Phosphorus 3.6 mg/dL (2.3-4.7)
[2022-06-10] MEDS: Cefepime 2 GM in Sodium Chloride 0.9% 100 ML IVPB SCH ×2 (08:50→20:56)
[2022-06-10] MEDS: predniSONE 20 MG TAB PO SCH (08:50)
[2022-06-10] MEDS: Metoprolol Tartrate 25 MG TAB PO SCH ×2 (08:51→21:16)
[2022-06-10] MEDS ORDERED: Sodium Chloride 0.65% Nasal 44 ML BOT EA NARE PRN (10:58)
[2022-06-10 14:24] LABS: Hemoglobin 7.6 g/dL (12.0-16.0); Mean Corpuscular HGB CONC 32.7 g/dL (32.0-36.0); Mean Corpuscular Hemoglobin 31.1 pg (27.0-31.0); Mean Corpuscular Volume 95.3 fl (78.0-98.0); Mean Platelet Volume 9.5 fL (7.4-10.4); Platelet Count 35 10x3/uL (130-400); RBC Distribution Width 14.9 % (11.5-14.5); Red Blood Cell (RBC) Count 2.44 mill/uL (4.20-5.40)
[2022-06-10] MEDS: VANCOMYCIN 1.25 GM/250 ML BAG 1.25 GM in Premix Bag 1 BAG IVPB SCH (14:51)
[2022-06-10] MEDS: Azithromycin 500 MG in Sodium Chloride 0.9% 250 ML 250 ML IVPB SCH (16:22)
[2022-06-10] MEDS: Acetaminophen 325 MG TAB PO PRN (16:40)
[2022-06-10] MEDS: HYDROcodone/Acetaminophen 10/325 mg Tablet PO PRN (21:15)
[2022-06-10] MEDS: Ondansetron PF 4 MG/2 ML Vial IVP PRN (21:32)
[2022-06-10] MEDS: Ondansetron ODT 4 MG TAB PO PRN (22:52)
[2022-06-11] MEDS: VANCOMYCIN 1.25 GM/250 ML BAG 1.25 GM in Premix Bag 1 BAG IVPB SCH ×2 (02:26→18:28)
[2022-06-11 06:06] LABS: ALT (SGPT) 16 U/L (8-55); AST (SGOT) 29 U/L (5-34); Albumin 2.4 g/dL (3.5-5.0); Alkaline Phosphatase 82 U/L (40-110); Anion Gap 13 mmol/L (10-20); BUN (Urea Nitrogen) 28 mg/dL (9.8-20.1); Bilirubin, Total 0.3 mg/dL (0.2-1.2); Calc. Creatinine Clearance 103 mL/min (70-130); Calcium 8.1 mg/dL (7.8-10.44); Carbon Dioxide 26 mmol/L (22-29); Chloride 104 mmol/L (98-107); Estimated GFR 102; Globulin 3.1 g/dL (2.4-3.5); Glucose 162 mg/dL (70-105); Potassium 3.5 mmol/L (3.5-5.1); Protein, Total 5.5 g/dL (6.0-8.3); Sodium 139 mmol/L (136-145)
[2022-06-11 06:22] LABS: Band 11 % (5-11); Hemoglobin 7.3 g/dL (12.0-16.0); Lymphocytes 15 % (21-51); MDiff Complete? YES; Mean Corpuscular Hemoglobin 31.3 pg (27.0-31.0); Mean Platelet Volume 9.2 fL (7.4-10.4); Monocytes 14 % (0-10); Neutrophil 60 % (42-75); Nucleated RBC 3 % (0); Platelet Count 28 10x3/uL (130-400); Platelet Morphology Comment Appears Decreased; RBC Distribution Width 14.9 % (11.5-14.5); Red Blood Cell (RBC) Count 2.31 mill/uL (4.20-5.40); White Blood Cell (WBC) Count 8.9 10x3/uL (4.8-10.8)
[2022-06-11] MEDS: predniSONE 20 MG TAB PO SCH (09:36)
[2022-06-11] MEDS: Cefepime 2 GM in Sodium Chloride 0.9% 100 ML IVPB SCH ×2 (09:36→21:04)
[2022-06-11] MEDS: Metoprolol Tartrate 25 MG TAB PO SCH ×2 (09:38→21:03)
[2022-06-11] MEDS ORDERED: Electrolyte Replacement Protocol 1 EACH FS ONE (11:33)
[2022-06-11] MEDS ORDERED: Electrolyte Replacement Protocol FS PRN (11:45)
[2022-06-11] MEDS ORDERED: Potassium Chloride 20 MEQ TAB PO SCH (12:00)
[2022-06-11 13:45] LABS: Vancomycin, Trough 26.5 ug/mL
[2022-06-11] MEDS: Ondansetron ODT 4 MG TAB PO PRN ×2 (15:01→21:03)
[2022-06-11] MEDS: Sodium Chloride 0.9% 1,000 ML IV SCH (15:04)
[2022-06-11 16:40] LABS: Potassium 3.4 mmol/L (3.5-5.1)
[2022-06-11] MEDS: Azithromycin 500 MG in Sodium Chloride 0.9% 250 ML 250 ML IVPB SCH (16:43)
[2022-06-11 20:17] LABS: RBC Count-Automated (BF) 8161 /cu.mm; WBC/Nucleated-Auto (BF) 496 /cu.mm
[2022-06-11 20:40] LABS: RBC Count-Automated (BF) 13765 /cu.mm; WBC/Nucleated-Auto (BF) 981 /cu.mm
[2022-06-11 20:48] LABS: Body Fluid Source Pleural Fluid
[2022-06-11 20:49] LABS: BF Color Pink; Body Fluid Source Pleural Fluid; Clarity Cloudy/Turbid (Clear); Tube # FALCON TUBE; Tube # TUBE
[2022-06-11 20:50] LABS: BF Color Pink; Clarity Cloudy/Turbid (Clear)
[2022-06-11 20:52] LABS: BF Segmented Neutrophils 51 %; Cell Count Non Hematic 9 %; Lymphocytes 40 %
[2022-06-11 21:21] LABS: Pleural Fluid, Protein 2.2 g/dL
[2022-06-11 21:28] LABS: BF Segmented Neutrophils 9 %; Cell Count Non Hematic 9 %; Lymphocytes 82 %
[2022-06-11] MEDS ORDERED: Promethazine HCl 12.5 MG in Sodium Chloride 0.9% 50 ML IVPB PRN (22:25)
[2022-06-11] MEDS: HYDROcodone/Acetaminophen 10/325 mg Tablet PO PRN (23:19)
[2022-06-11] MEDS ORDERED: Calcium Carbonate 500 MG ChewTAB PO SCH (23:30)
[2022-06-12] MEDS: Sodium Chloride 0.9% 1,000 ML IV SCH ×4 (00:32→23:43)
[2022-06-12] MEDS: Vancomycin 1 GM in Premix Bag 1 BAG IVPB SCH ×2 (01:42→14:17)
[2022-06-12 06:55] LABS: Hemoglobin 6.8 g/dL (12.0-16.0); Mean Corpuscular HGB CONC 32.7 g/dL (32.0-36.0); Mean Corpuscular Hemoglobin 31.1 pg (27.0-31.0); Mean Corpuscular Volume 95.1 fl (78.0-98.0); Mean Platelet Volume 10.1 fL (7.4-10.4); Platelet Count 18 10x3/uL (130-400); RBC Distribution Width 14.6 % (11.5-14.5); Red Blood Cell (RBC) Count 2.19 mill/uL (4.20-5.40); White Blood Cell (WBC) Count 8.5 10x3/uL (4.8-10.8)
[2022-06-12 07:00] LABS: ALT (SGPT) 24 U/L (8-55); AST (SGOT) 30 U/L (5-34); Albumin 2.4 g/dL (3.5-5.0); Alkaline Phosphatase 90 U/L (40-110); Anion Gap 10 mmol/L (10-20); BUN (Urea Nitrogen) 28 mg/dL (9.8-20.1); Bilirubin, Total 0.4 mg/dL (0.2-1.2); Calc. Creatinine Clearance 117 mL/min (70-130); Carbon Dioxide 26 mmol/L (22-29); Chloride 104 mmol/L (98-107); Estimated GFR 104; Globulin 2.7 g/dL (2.4-3.5); Glucose 137 mg/dL (70-105); Potassium 3.7 mmol/L (3.5-5.1); Protein, Total 5.1 g/dL (6.0-8.3); Sodium 136 mmol/L (136-145)
[2022-06-12] MEDS: predniSONE 20 MG TAB PO SCH (08:47)
[2022-06-12] MEDS: Ondansetron ODT 4 MG TAB PO PRN ×2 (09:04→20:58)
[2022-06-12] MEDS: Metoprolol Tartrate 25 MG TAB PO SCH ×2 (09:04→20:58)
[2022-06-12 09:45] LABS: Band 25 % (5-11); Lymphocytes 17 % (21-51); MDiff Complete? YES; Metamyelocyte 4 % (0-0); Monocytes 6 % (0-10); Neutrophil 47 % (42-75); Nucleated RBC 2 % (0); Platelet Morphology Comment Appears Decreased; Polychromasia SLIGHT = 2-3 cells (100X) (0-2/hpf); Reactive Lymphocytes 1 % (0-10)
[2022-06-12] MEDS: Ondansetron PF 4 MG/2 ML Vial IVP PRN (11:40)
[2022-06-12] MEDS: Cefepime 2 GM in Sodium Chloride 0.9% 100 ML IVPB SCH ×2 (11:42→20:57)
[2022-06-12] MEDS: Calcium Carbonate 500 MG ChewTAB PO PRN ×2 (14:18→22:06)
[2022-06-12] MEDS: Azithromycin 500 MG in Sodium Chloride 0.9% 250 ML 250 ML IVPB SCH (16:34)
[2022-06-12] MEDS: Acetaminophen 325 MG TAB PO PRN (16:40)
[2022-06-12 17:24] VITALS: BMI 29.4
[2022-06-12] MEDS: HYDROcodone/Acetaminophen 10/325 mg Tablet PO PRN (22:57)
[2022-06-13] MEDS: Vancomycin 1 GM in Premix Bag 1 BAG IVPB SCH ×2 (02:35→16:53)
[2022-06-13] MEDS: Calcium Carbonate 500 MG ChewTAB PO PRN (04:25)
[2022-06-13 05:41] LABS: Hemoglobin 8.6 g/dL (12.0-16.0); Mean Corpuscular HGB CONC 33.1 g/dL (32.0-36.0); Mean Corpuscular Hemoglobin 30.8 pg (27.0-31.0); Mean Platelet Volume 11.8 fL (7.4-10.4); Platelet Count 14 10x3/uL (130-400); RBC Distribution Width 15.4 % (11.5-14.5); White Blood Cell (WBC) Count 10.5 10x3/uL (4.8-10.8)
[2022-06-13 05:53] LABS: ALT (SGPT) 24 U/L (8-55); AST (SGOT) 19 U/L (5-34); Albumin 2.4 g/dL (3.5-5.0); Alkaline Phosphatase 87 U/L (40-110); Anion Gap 11 mmol/L (10-20); BUN (Urea Nitrogen) 26 mg/dL (9.8-20.1); Bilirubin, Total 0.4 mg/dL (0.2-1.2); Calc. Creatinine Clearance 113 mL/min (70-130); Calcium 8.1 mg/dL (7.8-10.44); Carbon Dioxide 25 mmol/L (22-29); Chloride 106 mmol/L (98-107); Estimated GFR 104; Globulin 2.7 g/dL (2.4-3.5); Glucose 154 mg/dL (70-105); Protein, Total 5.1 g/dL (6.0-8.3); Sodium 138 mmol/L (136-145)
[2022-06-13 06:51] LABS: Anisocytosis SLIGHT = 6-15 cells (100X) (0-5/hpf); Band 4 % (5-11); Lymphocytes 5 % (21-51); MDiff Complete? YES; Monocytes 16 % (0-10); Neutrophil 75 % (42-75); Nucleated RBC 5 % (0); Platelet Morphology Comment Appears Decreased
[2022-06-13] MEDS: predniSONE 20 MG TAB PO SCH (08:21)
[2022-06-13] MEDS: Metoprolol Tartrate 25 MG TAB PO SCH ×2 (08:22→20:08)
[2022-06-13] MEDS: Cefepime 2 GM in Sodium Chloride 0.9% 100 ML IVPB SCH ×2 (08:22→20:07)
[2022-06-13] MEDS: Ondansetron ODT 4 MG TAB PO PRN ×2 (10:57→20:08)
[2022-06-13 13:28] LABS: Magnesium 1.8 mg/dL (1.6-2.6); Phosphorus 2.5 mg/dL (2.3-4.7)
[2022-06-13 13:47] LABS: Vancomycin, Trough 24.1 ug/mL
[2022-06-13] MEDS ORDERED: Magnesium 2 GM/50 ML(in water) 2 GM in Premix Bag 1 BAG IVPB SCH (14:15)
[2022-06-13] MEDS: Azithromycin 500 MG in Sodium Chloride 0.9% 250 ML 250 ML IVPB SCH (16:56)
[2022-06-14] MEDS: HYDROcodone/Acetaminophen 10/325 mg Tablet PO PRN ×2 (00:02→21:44)
[2022-06-14 01:27] LABS: Vancomycin, Random 15.6 ug/mL (See Comment)
[2022-06-14] MEDS: Vancomycin HCl 750 MG in Sodium Chloride 0.9% 250 ML 250 ML IVPB SCH ×2 (04:04→14:43)
[2022-06-14 05:28] LABS: Hemoglobin 8.2 g/dL (12.0-16.0); Mean Corpuscular HGB CONC 32.1 g/dL (32.0-36.0); Mean Corpuscular Volume 93.5 fl (78.0-98.0); Mean Platelet Volume 13.6 fL (7.4-10.4); Platelet Count 11 10x3/uL (130-400); RBC Distribution Width 15.7 % (11.5-14.5); Red Blood Cell (RBC) Count 2.74 mill/uL (4.20-5.40)
[2022-06-14 05:49] LABS: ALT (SGPT) 25 U/L (8-55); AST (SGOT) 18 U/L (5-34); Albumin 2.4 g/dL (3.5-5.0); Alkaline Phosphatase 86 U/L (40-110); Anion Gap 10 mmol/L (10-20); BUN (Urea Nitrogen) 24 mg/dL (9.8-20.1); Bilirubin, Total 0.5 mg/dL (0.2-1.2); Calc. Creatinine Clearance 115 mL/min (70-130); Calcium 8.2 mg/dL (7.8-10.44); Carbon Dioxide 28 mmol/L (22-29); Chloride 105 mmol/L (98-107); Estimated GFR 104; Globulin 2.5 g/dL (2.4-3.5); Glucose 119 mg/dL (70-105); Magnesium 2.1 mg/dL (1.6-2.6); Phosphorus 2.8 mg/dL (2.3-4.7); Potassium 3.7 mmol/L (3.5-5.1); Protein, Total 4.9 g/dL (6.0-8.3); Sodium 139 mmol/L (136-145)
[2022-06-14 06:10] LABS: Anisocytosis SLIGHT = 6-15 cells (100X) (0-5/hpf); Band 12 % (5-11); Lymphocytes 14 % (21-51); MDiff Complete? YES; Metamyelocyte 2 % (0-0); Monocytes 6 % (0-10); Myelocyte 4 % (0-0); Neutrophil 62 % (42-75); Nucleated RBC 9 % (0); Platelet Morphology Comment Appears Decreased
[2022-06-14] MEDS: Metoprolol Tartrate 25 MG TAB PO SCH ×2 (06:49→20:21)
[2022-06-14] MEDS ORDERED: Bupivacaine/Epinephrine 0.25% 30 ML VIAL ONE (09:28)
[2022-06-14] MEDS ORDERED: FENTANYL 50 MCG/ML 1 ML VIAL ONE ×2 (09:32)
[2022-06-14] MEDS ORDERED: PHENYLEPHRINE-NS 100 MCG/ML 10 ML SYRINGE ONE (09:50)
[2022-06-14] MEDS ORDERED: Lidocaine 1% PF 5 ML VIAL ONE (09:50)
[2022-06-14] MEDS ORDERED: Ondansetron HCl/PF 4 MG/2 ML Vial IVP PRN (10:48)
[2022-06-14] MEDS ORDERED: Promethazine HCl 25 MG/ML VIAL IVPB PRN (10:48)
[2022-06-14] MEDS: Cefepime 2 GM in Sodium Chloride 0.9% 100 ML IVPB SCH ×2 (11:30→20:21)
[2022-06-14] MEDS: predniSONE 20 MG TAB PO SCH (12:37)
[2022-06-14] MEDS: Sodium Chloride 0.9% 1,000 ML IV SCH (14:43)
[2022-06-14] MEDS: Azithromycin 500 MG in Sodium Chloride 0.9% 250 ML 250 ML IVPB SCH (16:47)
[2022-06-14] MEDS: Ondansetron PF 4 MG/2 ML Vial IVP PRN (20:21)
[2022-06-14] MEDS ORDERED: Simethicone Chewable 80 MG TAB PO PRN (23:51)
[2022-06-15] MEDS: Vancomycin HCl 750 MG in Sodium Chloride 0.9% 250 ML 250 ML IVPB SCH ×2 (03:53→16:14)
[2022-06-15 06:02] LABS: ALT (SGPT) 26 U/L (8-55); AST (SGOT) 19 U/L (5-34); Albumin 2.5 g/dL (3.5-5.0); Alkaline Phosphatase 89 U/L (40-110); Anion Gap 8 mmol/L (10-20); BUN (Urea Nitrogen) 19 mg/dL (9.8-20.1); Bilirubin, Total 0.6 mg/dL (0.2-1.2); Calc. Creatinine Clearance 126 mL/min (70-130); Calcium 7.7 mg/dL (7.8-10.44); Carbon Dioxide 28 mmol/L (22-29); Chloride 104 mmol/L (98-107); Estimated GFR 104; Globulin 2.4 g/dL (2.4-3.5); Glucose 131 mg/dL (70-105); Hemoglobin 7.8 g/dL (12.0-16.0); Mean Corpuscular HGB CONC 31.9 g/dL (32.0-36.0); Mean Corpuscular Hemoglobin 29.9 pg (27.0-31.0); Mean Corpuscular Volume 93.7 fl (78.0-98.0); Mean Platelet Volume 8.4 fL (7.4-10.4); Platelet Count 37 10x3/uL (130-400); Potassium 3.4 mmol/L (3.5-5.1); Protein, Total 4.9 g/dL (6.0-8.3); RBC Distribution Width 15.2 % (11.5-14.5); Sodium 137 mmol/L (136-145)
[2022-06-15 06:43] LABS: Anisocytosis SLIGHT = 6-15 cells (100X) (0-5/hpf); Band 17 % (5-11); Lymphocytes 12 % (21-51); MDiff Complete? YES; Metamyelocyte 2 % (0-0); Monocytes 1 % (0-10); Myelocyte 5 % (0-0); Neutrophil 63 % (42-75); Nucleated RBC 5 % (0); Platelet Morphology Comment Appears Decreased; White Blood Cell (WBC) Count 14.3 10x3/uL (4.8-10.8)
[2022-06-15] MEDS ORDERED: Potassium Chloride 20 MEQ TAB PO SCH (08:15)
[2022-06-15] MEDS: predniSONE 20 MG TAB PO SCH (09:35)
[2022-06-15] MEDS: Metoprolol Tartrate 25 MG TAB PO SCH ×2 (09:36→21:49)
[2022-06-15] MEDS: Cefepime 2 GM in Sodium Chloride 0.9% 100 ML IVPB SCH ×2 (09:36→21:49)
[2022-06-15 14:25] LABS: Potassium 3.6 mmol/L (3.5-5.1)
[2022-06-15 14:30] LABS: Vancomycin, Trough 15.9 ug/mL
[2022-06-15] MEDS: Acetaminophen 325 MG TAB PO PRN (17:24)
[2022-06-15] MEDS: HYDROcodone/Acetaminophen 10/325 mg Tablet PO PRN (21:48)
[2022-06-16] MEDS: Cefepime 2 GM in Sodium Chloride 0.9% 100 ML IVPB SCH (09:19)
[2022-06-16] MEDS: predniSONE 20 MG TAB PO SCH (09:19)
[2022-06-16] MEDS: Metoprolol Tartrate 25 MG TAB PO SCH (09:20)
[2022-06-16 12:30] VITALS: BP 116/56; TEMP 97.3
[2022-06-16] MEDS: Ondansetron PF 4 MG/2 ML Vial IVP PRN (12:32)
== END 2022-06-16 15:40 | disposition home or self-care (01) | DRG 853 ==
LOC: ERS 16:32 → ERHOLD 23:49 → 2SW 06-06 08:38 → OBSVTOIN 06-06 16:43
PROVIDERS: ADMIT Internal Medicine; ATTEND Internal Medicine
PROC: 30233N1 Transfusion of Nonautologous Red Blood Cells into Peripheral Vein, Percutaneous Approach (ICD-10-PCS; 2022-06-05)
PROC: 6A551Z2 Pheresis of Platelets, Multiple (ICD-10-PCS; 2022-06-05)
PROC: 3E04329 Introduction of Other Anti-infective into Central Vein, Percutaneous Approach (ICD-10-PCS; principal; 2022-06-06)
PROC: 0JH60WZ Insertion of Totally Implantable Vascular Access Device into Chest Subcutaneous Tissue and Fascia, Open Approach (ICD-10-PCS; 2022-06-14)
PROC: 02PY03Z Removal of Infusion Device from Great Vessel, Open Approach (ICD-10-PCS; 2022-06-14)
PROC: 02HV33Z Insertion of Infusion Device into Superior Vena Cava, Percutaneous Approach (ICD-10-PCS; 2022-06-14)
PROC: B5181ZA Fluoroscopy of Superior Vena Cava using Low Osmolar Contrast, Guidance (ICD-10-PCS; 2022-06-14)
PROC: B548ZZA Ultrasonography of Superior Vena Cava, Guidance (ICD-10-PCS; 2022-06-14)
PROC: 0JPT0WZ Removal of Totally Implantable Vascular Access Device from Trunk Subcutaneous Tissue and Fascia, Open Approach (ICD-10-PCS; 2022-06-14)
DX: A41.9 Sepsis, unspecified organism (principal); D61.810 Antineoplastic chemotherapy induced pancytopenia; J96.01 Acute respiratory failure with hypoxia; J18.9 Pneumonia, unspecified organism; C78.01 Secondary malignant neoplasm of right lung; E87.1 Hypo-osmolality and hyponatremia; C78.02 Secondary malignant neoplasm of left lung; T82.594A Other mechanical complication of infusion catheter, initial encounter; C56.9 Malignant neoplasm of unspecified ovary; J91.0 Malignant pleural effusion; Z20.822 Contact with and (suspected) exposure to COVID-19; D46.9 Myelodysplastic syndrome, unspecified; E87.6 Hypokalemia; T45.1X5A Adverse effect of antineoplastic and immunosuppressive drugs, initial encounter; Y84.8 Other medical procedures as the cause of abnormal reaction of the patient, or of later complication, without mention of misadventure at the time of the procedure; R00.1 Bradycardia, unspecified; Z88.5 Allergy status to narcotic agent; Z88.2 Allergy status to sulfonamides; Z88.8 Allergy status to other drugs, medicaments and biological substances; Z79.899 Other long term (current) drug therapy; Z90.710 Acquired absence of both cervix and uterus; Z90.722 Acquired absence of ovaries, bilateral; Z85.43 Personal history of malignant neoplasm of ovary
CPT/HCPCS: 36415; 36430; 71045; 71046; 71275; 74176; 80048; 80053; 80202; 81001; 82945; 83605; 83735; 83880; 84100; 84145; 84157; 84484; 85025; 85027; 85060; 86850; 86900; 86901; 87040; 87070; 87086; 87205; 87811; 89051; 93005; 93010; 93306; 94640; 96374; C1788; J0456; J0692; J1200; J1642; J1940; J2405; J2550; J3010; J3370; J3370-JW; J3475; J3490; J7030; J7050; J7512; J7620; P9016; P9035; Q0162; Q0163; Q9967; U0002